=== PATIENT | female | born 1965 | race Caucasian/White ===

== ENCOUNTER 2020-06-22 14:30 | Outpatient (CLI) | payer OTHER, SELFPAY ==
--- NOTE | 2020-06-22 | ECHO_ITS ---
Patient Info Name: Susan Ghosh Age: 54 years : 1965 Gender: Female Ht: 60 in Wt: 170 lbs BSA: 1.84 m2 HR: 92 bpm BP: 157 / 105 mmHg Heart Rhythm: Sinus Rhythm Technical Quality: Good Exam Date: 06/22/2020 2:51 PM Exam Location: [facility] Patient Status: Outpatient Admit Date: 06/22/2020 Staff Ordering Physician: RobertaGhassan MD Customer Services Manager: Nils Partida, ABBY, RT Attending Provider: Willam, Ghassan Pop MD Referring Physician: Willam BELL; Exam Type: CA echo doppler color flow Study Info Indications R01.1 - Cardiac murmur, unspecified Complete two-dimensional, color flow and Doppler transthoracic echocardiogram is performed. Strain analysis performed. Summary 1. Complete two-dimensional, color flow and Doppler transthoracic echocardiogram is performed. 2. Strain analysis performed. 3. Left ventricular chamber dimension is normal. 4. Left ventricular systolic function is normal, estimated at 65-70%. 5. There is mildly increased left ventricular wall thickness. 6. Left ventricular septal wall motion is normal. 7. The left ventricular diastolic function is normal. 8. Global longitudinal strain is normal at -21 %. 9. There is mild mitral valve regurgitation. 10. There is mild tricuspid valve regurgitation. 11. Mild pulmonary hypertension, estimated pulmonary arterial systolic pressure is 38 mmHg. 12. There is mild pulmonic regurgitation. Left Ventricle Left ventricular chamber dimension is normal. Left ventricular systolic function is normal, estimated at 65-70%. There is mildly increased left ventricular wall thickness. Left ventricular septal wall motion is normal. The left ventricular diastolic function is normal. Global longitudinal strain is normal at -21 %. Right Ventricle Right ventricular chamber dimension is normal. Right ventricular systolic function is normal. Left Atria Left atrial chamber dimension is normal. Right Atria Right atrial chamber dimension is normal. Atrial Septum Intact interatrial septum visualized by color flow imaging. Aortic Valve The aortic valve is trileaflet. There is no aortic valve sclerosis. There is no aortic valve stenosis. There is trace aortic valve regurgitation. Pulmonic Valve The pulmonic valve is normal. There is no pulmonic valve stenosis. There is mild pulmonic regurgitation. Mitral Valve The mitral valve has normal leaflets. There is no mitral valve stenosis. There is mild mitral valve regurgitation. Tricuspid Valve Mild pulmonary hypertension, estimated pulmonary arterial systolic pressure is 38 mmHg. The tricuspid valve leaflets are normal. There is no significant tricuspid valve stenosis. There is mild tricuspid valve regurgitation. Pericardium/Pleural The pericardium appears normal. There is no pericardial effusion. Inferior Vena Cava Dilated inferior vena cava with >50% collapse upon inspiration consistent with elevated right atrial pressure, 10 mmHg. Aorta The aortic root size at the sinus of Valsalva is normal. Left Ventricular Outflow Tract Name Value Normal LVOT 2D LVOT Diameter 1.9 cm LVOT Doppler ----
== END 2020-06-22 14:31 | disposition home or self-care (01) ==
LOC: ANHCARD 14:32
PROVIDERS: PCP Family Medicine; Visit Provider Family Medicine
DX: R01.1 Cardiac murmur, unspecified (principal); I27.20 Pulmonary hypertension, unspecified
CPT/HCPCS: 93306

== ENCOUNTER → 2020-09-30 14:05 | Outpatient (CLI) | payer OTHER, SELFPAY ==
--- NOTE | ~2020-09-30 | MM_ITS ---
EXAMINATION: MM screening adarsh BI w marlys HISTORY: Screening mammogram TECHNIQUE: Craniocaudal and mediolateral oblique 3-D tomosynthesis images were obtained and synthetic 2-D images were generated. CAD analysis was submitted and interpreted. COMPARISON: 08/26/2019 bilateral digital screening mammogram 08/02/2018 bilateral diagnostic digital mammogram and Limited bilateral breast ultrasound 07/26/2018, 07/24/2017 bilateral digital screening mammogram examinations BREAST PARENCHYMAL COMPOSITION: There are scattered areas of fibroglandular density. FINDINGS: There is no evidence of suspicious mass, calcification, or architectural distortion to sugg est malignancy in either breast. There has been no suspicious interval change. IMPRESSION: 1. No mammographic evidence of malignancy. 2. Recommend routine screening mammography in one year. BI-RADS Category 1: Negative Reviewed, dictated and finalized at location A. MBLY ROOM SUPERVISOR
== END ==
PROVIDERS: PCP Family Medicine; Visit Provider Obstetrics & Gynecology
DX: Z12.31 Encounter for screening mammogram for malignant neoplasm of breast (principal)
CPT/HCPCS: 77063; 77067

== ENCOUNTER → 2021-10-04 14:51 | Outpatient (CLI) | payer OTHER, SELFPAY ==
--- NOTE | ~2021-10-04 | MM_ITS ---
EXAMINATION: MM screening adarsh BI w marlys HISTORY: Screening TECHNIQUE: Craniocaudal and mediolateral oblique 3-D tomosynthesis images were obtained and synthetic 2-D images were generated. CAD analysis was submitted and interpreted. COMPARISON: Comparison to multiple prior studies sequentially, with oldest reviewed study dated 06/20. BREAST PARENCHYMAL COMPOSITION: There are scattered areas of fibroglandular density. FINDINGS: There is no evidence of suspicious mass, calcification, or architectural distortion to sugg est malignancy in either breast. There has been no suspicious interval change. IMPRESSION: 1. No mammographic evidence of malignancy. 2. Recommend routine screening mammography in one year. BI-RADS Category 1: Negative Reviewed, dictated and finalized at location A. NE STEAM FITTER HELPER
== END ==
PROVIDERS: PCP Family Medicine; Visit Provider Obstetrics & Gynecology
DX: Z12.31 Encounter for screening mammogram for malignant neoplasm of breast (principal)
CPT/HCPCS: 77063; 77067

== ENCOUNTER → 2022-10-10 14:44 | Outpatient (CLI) | payer OTHER, SELFPAY ==
--- NOTE | ~2022-10-10 | MM_ITS ---
EXAMINATION: MM screening adarsh BI w marlys HISTORY: Screening mammogram TECHNIQUE: Craniocaudal and mediolateral oblique 3-D tomosynthesis images were obtained and synthetic 2-D images were generated. CAD analysis was submitted and interpreted. COMPARISON: October 04, 2021, September 30, 2020, August 26, 2019 bilateral screening mammogram exami [place] BREAST PARENCHYMAL COMPOSITION: There are scattered areas of fibroglandular density. FINDINGS: There is no evidence of suspicious mass, calcification, or architectural distortion to sugg est malignancy in either breast. There has been no suspicious interval change. IMPRESSION: 1. No mammographic evidence of malignancy. 2. Recommend routine screening mammography in one year. BI-RADS Category 1: Negative Reviewed, dictated and finalized at location A. IDE PRODUCTION INSPECTOR
== END ==
PROVIDERS: PCP Family Medicine; Visit Provider Obstetrics & Gynecology
DX: Z12.31 Encounter for screening mammogram for malignant neoplasm of breast (principal)
CPT/HCPCS: 77063; 77067

== ENCOUNTER 2024-01-18 13:07 | Outpatient (CLI) | payer OTHER, SELFPAY ==
--- NOTE | ~2024-01-18 | DEXA_ITS ---
Bone Density Report Name: FELISHA COX Age: 58 Sex: Female Ethnicity: White Date of : 1965 Indication: postmenopausal; screening for osteoporosis; Referring Provider: NARENDRA, ONUR Lai Study: Bone densitometry was performed. Exam Date: January 18, 2024 Accession number: [id number] Bone Density: Region BMD T-score Z-score Classification AP Spine (L1, L3, L4) 1.044 -0.1 1.2 Normal Femoral Neck (Left) 0.737 -1.0 0.2 Normal Total Hip (Left) 0.916 -0.2 0.6 Normal Femoral Neck (Right) 0.705 -1.3 -0.1 Osteopenia Total Hip (Right) 0.892 -0.4 0.4 Normal Total Hip Mean 0.904 -0.3 0.5 Normal World Health Organization criteria for BMD impression classify patients as: Normal (T-score at or above -1.0), Osteopenia (T-score between -1.0 and -2.5), or Osteoporosis (T-score at or below -2.5). 10-year Fracture Risk(1): Major Osteoporotic Fracture 6.7% Hip Fracture 0.4% Reported Risk Factors: [place] (), Neck BMD=0.705, BMI=34.6 (1) FRAX(R) Version 3.08. Fracture probability calculated for an untreated patient. Fracture probability may be lower if the patient has received treatment. Clinical Information Provided by Patient: Has used the following medications: HRT (i.e. estrogen/hormone therapy), Vitamin D, Calcium Patient maximum height was 60 Menopause Age: 45 No regular weight bearing exercise Drinks caffeinated beverages Onset of menses at age 12 Number of children 0 Missed period for more than 6 months in a row Impression: The patient has low bone mass, based on the Right Femoral Neck T-score. The patient has an estimated ten-year risk of hip fracture of 0.4% and an estimated ten-year risk of major fracture of 6.7%, based on the WHO FRAX algorithm. Discussion: BONE DENSITY IS LOW AT ONE OR MORE SKELETAL SITES. This patient's lowest T-score is low at one or more skeletal sites. It meets the World Health Organization's (WHO) criteria for ?low bone mass? (T-score between -1.0 and -2.5). The patient's 10-year risk of fracture as calculated by FRAX is less than the threshold where pharmacological therapy is recommended by the National Osteoporosis Foundation (NOF). However, all treatment decisions require clinical judgment and consideration of individual patient factors, including patient preferences, comorbidities, previous drug use, risk factors not captured in the FRAX model (e.g., frailty, falls, vitamin D deficiency, increased bone turnover, interval significant decline in bone density) and possible under or overestimation of fracture risk by FRAX. The patient should follow a healthful lifestyle (good nutrition with adequate calcium and vitamin D, and appropriate weight-bearing exercise). Follow-Up: Consider repeating this study in 2 to 3 years to reassess this patient's status, or alma rosa
== END 2024-01-18 13:08 ==
LOC: MICIMG 13:11
PROVIDERS: PCP Nurse Practitioner Family; Visit Provider Physician Assistant
DX: Z13.820 Encounter for screening for osteoporosis (principal); M85.89 Other specified disorders of bone density and structure, multiple sites; Z78.0 Asymptomatic menopausal state; Z12.31 Encounter for screening mammogram for malignant neoplasm of breast
CPT/HCPCS: 77080

== ENCOUNTER 2025-02-19 10:10 | Outpatient (CLI) | payer OTHER, SELFPAY ==
--- NOTE | ~2025-02-19 | MM_ITS ---
EXAMINATION: MM screening adarsh BI w marlys HISTORY: Screening mammogram TECHNIQUE: Craniocaudal and mediolateral oblique 3-D tomosynthesis images were obtained and synthetic 2-D images were generated. CAD analysis was submitted and interpreted. COMPARISON: 10/10/2022, 10/04/2021, 07/30/2021 BREAST PARENCHYMAL COMPOSITION:Not Dense. There are scattered areas of fibroglandular density. FINDINGS: No suspicious mass, calcification, or architectural distortion are identified in either magalie ast to suggest malignancy. There has been no suspicious interval change. IMPRESSION: No mammographic evidence of malignancy. Recommend routine screening mammography in one year. BI-RADS Category 1: Negative Reviewed, dictated and finalized at location .
--- OUTSIDE RECORDS SUMMARY | 2025-02-19 10:20 | XMS_ITS | Referral Summary ---
Author Organization [facility] Address [facility] [place] [address] Care Team Providers Care Interface Developer Name Role Phone Alena Kinsey OD Unavailable [phone] Rehan Silvestre MD Unavailable [phone] Cuca Waggoner NP Primary Care Provider [phone] Allergies No known active allergies Medications nystatin powder Apply topically 2 (two) times a day APPLY TO AFFECTED AREA 2 Active omeprazole (PriLOSEC) 10 mg capsule Take 1 capsule (10 mg total) by mouth daily Active multivitamin tabletIndicatio ns:Vitamin Deficiency Prevention Take 1 tablet by mouth Active calcium carbonate-vitam in D3 (CALTRATE 600 + D) 1500 mg (600 mg elemental) -400 units per tablet Take 2 tablets by mouth daily 180 tablet 3 5 Active atorvastatin (LIPITOR) 10 mg tablet Take 1 tablet (10 mg total) by mouth daily 90 tablet 3 5 Active losartan-hydroC HLOROthiazide (HYZAAR) 50-12.5 mg per tablet Take 1 tablet by mouth daily 90 tablet 3 5 Active Active Problems Problem Noted Date Diagnosed Date Annual physical exam 10/28/2024 Assessment & Plan (10/28/2024 2:00 PM CDT): -Recommended: Healthy diet. Avoiding junk food/fast food. -30 minutes of exercise most days of the week. Increase to 45 minutes for weight loss. Health Maintenance reviewed - labs ordered.. -Influenza vaccine every year Recommend: -There are no preventive care reminders to display for this patient. -F/u in 1 year for Annual PE or sooner if needed Dysphagia 10/28/2024 Tinnitus of both ears 06/17/2024 Assessment & Plan (06/17/2024 2:34 PM CDT): I recommended next step is to get a hearing test. She does not believe that she needs a referral and will look for leak detection engineer in [place]. She will call if she needs any assistance in finding 1 Osteopenia after menopause 11/02/2023 Assessment & Plan (11/02/2023 3:06 PM CDT): She does have low bone density consistent with osteopenia. Protective lifestyle factors for prevention of disease progression reviewed with pt: Recommend that she consumes at least 1200mg calcium and 800 IU of vitamin D either in her diet or a combination supplement. In addition she should limit alcohol and caffeine intake, avoid smoking, and take measures to prevent falls. Also she should make sure to do some sort of weight bearing exercise (lifting weights, hiking, walking, climbing stairs) for 30 minutes per day for at least 3 days a week. She has been following this with PCP and has a repeat DEXA scan ordered by them. Family history of cancer 11/02/2023 Assessment & Plan (11/02/2023 11:04 AM CDT): Family history of ovarian, uterine, colon, and breast cancer. Counseled on [facility] genetic screening. Patient would like to proceed with testing today. Well woman exam with routine gynecological exam 11/02/2023 Assessment & Plan (11/02/2023 11:05 AM CDT): The patient was here for her well woman exam. She is doing fine. We discussed healthy lifestyle choices such as exercise, diet, multivitamins, calcium, Vit D and avoidance of tobacco, vaping and drug use. Yearly mammography was recommended. She plans to follow up again in one year unless her records show need for another Pap smear in 6 months. She plans to get her records sent to me to assess. Pap was done. History of abnormal cervical Pap smear Assessment & Plan (11/02/2023 11:10 AM CDT): Patient has hx of abnormal pap smear. She plans to get her records sent from her previous [facility] so I can see what abnormalities and make a plan of care. She has had 3 colposcopies with 6 month follow ups. Her last pap smear was normal in 04/2023. She is on the schedule for 6 months from now and I will let her know if that is still necessary after reading her records. Patient is comfortable with this plan. Optic neuropathy, bilateral 09/08/2022 Bilateral hearing loss 06/30/2022 Gastroesophageal reflux disease 06/30/2022 Assessment & Plan (01/18/2024 9:46 AM CDT): Stable on current medication. Continue prilosec otc as ordered. May follow up in 6 months Hyperlipidemia 06/30/2022 Assessment & Plan (10/28/2024 2:00 PM CDT): Lipid abnormalities are stable, reviewed previous lipid levels in [facility]. Continue statin therapy. Lipitor (atorvastatin) Order for lipid panel was given today to be obtained. Pt voiced understanding of lab drawn and continuation of current medication regimen. Assessment & Plan (01/18/2024 9:47 AM CDT): Lipid abnormalities are stable, reviewed previous lipid levels in [facility]. Continue statin therapy. Lipitor (atorvastatin) Will recheck lipid panel in 6 months. Pt voiced understanding of lab drawn and continuation of current medication regimen. Hypertension, essential 07/18/2021 Assessment & Plan (10/28/2024 2:02 PM CDT): Stable/ Improved. Blood pressure is adequately controlled on Losartan and hydrochlorothiazide . We will not make any medication changes today. Will have her follow-up in 6 months for continued monitoring and management Assessment & Plan (01/18/2024 9:46 AM CDT): Stable/ Improved. Blood pressure is adequately controlled on Losartan and hydrochlorothiazide . We will not make any medication changes today. Will have her follow-up in 6 months for continued monitoring and management Resolved Problems Problem Noted Date Diagnosed Date Resolved Date Inverted nipple 11/02/2023 01/18/2024 Assessment & Plan (11/02/2023 11:04 AM CDT): Left sided inverted nipple. She states this is a new finding and she just started noticing it a few months ago. She plans her screening mammogram as soon as possible at [facility]. I also put in for a diagnostic mammogram to assess the inverted nipple further. Patient is comfortable with this plan and will reach out with any concern or questions. Hormone replacement therapy 11/02/2023 01/18/2024 Assessment & Plan (11/02/2023 3:05 PM CDT): Has been taking a half tablet of Activella daily. She has been taking HRT for about 9 years. She is comfortable with trying to wean off. Plans to wean off and let me know if it is successful. Instructions on how to do this reviewed. Patient is comfortable with this plan. 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 01/18/2024 Contact dermatitis due to poison [place] 06/30/2022 01/18/2024 Memory impairment 06/30/2022 01/18/2024 Immunizations Immunization Administration Dates Next Due Influenza, Quadrivalent, Spl it, Preservative Free, Intramuscular 07/14/2020 Influenza, Unspecified 06/17/2024(Deferr ed: Patient Refused),08/20/2022(Deferred: Patient Refused) Tdap 05/11/2020 ZOSTER Recombinant 07/14/2020,05/11/2020 Social History Tobacco Use Types Packs/Day Years Used Date Smoking Tobacco: Never Smokeless Tobacco: Never Tobacco Cessation:Counseling Given: Not Answered AUDIT-C Answer Date Recorded Q1: How often do you have a drink containing alc ohol? 2-3 times a week 11/02/2023 Q2: How many drinks containi ng alcohol do you have on a typical day when you are drinking? 1 or 2 11/02/2023 Q3: How often do you have si x or more drinks on one occasion? 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 Not on file Not on file Not on file Last Filed Vital Signs Vital Sign Reading Time Taken Comments Blood Pressure 116/72 10/28/2024 1:34 PM CDT Pulse 79 10/28/2024 1:34 PM CDT Temperature 36.3 C (97.4 F) 10/28/2024 1:34 PM CDT Respiratory Rate 18 10/28/2024 1:34 PM CDT Oxygen Saturation 98% 10/28/2024 1:34 PM CDT Inhaled Oxygen Concentration - - Weight 79.1 kg (174 lb 4.8 oz) 10/28/2024 1:34 P M CDT Height 152.4 cm (5') 10/28/2024 1:34 PM CDT Body Mass Index 34.04 10/28/2024 1:34 PM CDT Plan of Treatment Not on file Procedures Procedure Name Priority Date/Time Associated Diagnosis Comments DIAGNOSTIC MAMMOGRAM BILATERAL W LUDIN Schedule Routine, Read Routine (OP Routine) 11/27/2023 10:17 AM CDT Inverted nipple HIGH RISK HPV DNA DETECTION WITH GENOTYPING Routine 11/02/2023 11:07 AM CDT Encounter for Papanicolaou smear for cervical cancer screening from Last 3 Months or Most Recently Relevant to Health Maintenance Results * Diagnostic Mammogram Bilateral W Ludin (11/27/2023 10:17 AM CDT) Anatomical Region Laterality Modality Breast Bilateral Mammography 11/27/2023 11:2 2 AM CDT Addenda Addendum by Harman Lerma MD on 12/04/2023 8:39 AM CDT Addendum report: Outside films now been made available dated 10/10/2022 and 10/04/2021. Direct comparison confirms no significant new process. Sustained. Recommendation routine screening mammography bilateral in 1 year assessment: BI-RADS 2 Electronically signed by: Harman Lerma MD Impressions 11/27/2023 11:22 AM CDT ACR BI-RADS Category 2 - Benign. EXAM: Ultrasound left focal limited Ultrasound was performed [id number] EXAM DATE AND TIME: 11/27/2023 10:15 AM HISTORY: Patient complaining of nipple retraction left side. No other current clinical history of concern COMPARISON: Outside old films have been requested and when they become available an addendum comparative report report can be issued TISSUE DENSITY: There are scattered fibroglandular densities (25% - 50%) TECHNIQUE: focal limited Ultrasound was performed FINDINGS: Targeted ultrasound the periareolar region on the left revealed normal ductal pattern. No evidence of any dominant mass. No malignancy no imaging reason for retraction ASSESSMENT: Normal IMPRESSION: ACR BI-RADS Category 2 - Benign. RECOMMENDATION: 1: Routine screening mammogram bilateral in 1 Year 2: Volpara density b - 3.5 to 7.5% Thank you for your referral. Electronically signed by: Harman Lerma MD Narrative 11/27/2023 11:22 AM CDT [id number] EXAM: DIAGNOSTIC MAMMOGRAM BILATERAL W LUDIN, US BREAST LEFT LIMITED EXAM: Bilateral Diagnostic Mammogram with additional spot compression left and ludin [id number] EXAM DATE AND TIME: 11/27/2023 10:15 AM HISTORY: Patient complaining of nipple retraction left side. No other current clinical history of concern COMPARISON: Outside old films have been requested and when they become available an addendum comparative report report can be issued TISSUE DENSITY: There are scattered fibroglandular densities (25% - 50%) TECHNIQUE- diagnostic mammogram with additional spot compression and 3-D ludin Additional 3-D spot compression views were obtained on the left FINDINGS: There is slight asymmetry in the right upper outer quadrant compared to the left but this is made up of the glandular texture. On the right side there is no other dominant masses clustered calcification of the changes suggestive of malignancy. Left side demonstrates benign nodes and some scattered benign lobular calcifications. The retronipple area does show increased ductal prominence and there is slight bilateral nipple retraction. There is no other mass identified behind the nipple or other reason for nipple retraction. See ultrasound ASSESSMENT: There is no evidence of malignancy. Procedure Note Harman Lerma MD - 11/27/2023 [id number] EXAM: DIAGNOSTIC MAMMOGRAM BILATERAL W LUDIN, US BREAST LEFT LIMITED EXAM: Bilateral Diagnostic Mammogram with additional spot compression left and ludin [id number] EXAM DATE AND TIME: 11/27/2023 10:15 AM HISTORY: Patient complaining of nipple retraction left side. No other current clinical history of concern COMPARISON: Outside old films have been requested and when they become available an addendum comparative report report can be issued TISSUE DENSITY: There are scattered fibroglandular densities (25% - 50%) TECHNIQUE- diagnostic mammogram with additional spot compression and 3-D ludin Additional 3-D spot compression views were obtained on the left FINDINGS: There is slight asymmetry in the right upper outer quadrant compared to the left but this is made up of the glandular texture. On the right side there is no other dominant masses clustered calcification of the changes suggestive of malignancy. Left side demonstrates benign nodes and some scattered benign lobular calcifications. The retronipple area does show increased ductal prominence and there is slight bilateral nipple retraction. There is no other mass identified behind the nipple or other reason for nipple retraction. See ultrasound ASSESSMENT: There is no evidence of malignancy. IMPRESSION: ACR BI-RADS Category 2 - Benign. EXAM: Ultrasound left focal limited Ultrasound was performed [id number] EXAM DATE AND TIME: 11/27/2023 10:15 AM HISTORY: Patient complaining of nipple retraction left side. No other current clinical history of concern COMPARISON: Outside old films have been requested and when they become available an addendum comparative report report can be issued TISSUE DENSITY: There are scattered fibroglandular densities (25% - 50%) TECHNIQUE: focal limited Ultrasound was performed FINDINGS: Targeted ultrasound the periareolar region on the left revealed normal ductal pattern. No evidence of any dominant mass. No malignancy no imaging reason for retraction ASSESSMENT: Normal IMPRESSION: ACR BI-RADS Category 2 - Benign. RECOMMENDATION: 1: Routine screening mammogram bilateral in 1 Year 2: Volpara density b - 3.5 to 7.5% Thank you for your referral. Electronically signed by: Harman Lerma MD Farzana Pickett NP IMG MAMMO PROCEDURES Ed ited Result - Final * High Risk HPV DNA Detection with Genotyping (Molecular component) (11/02/2023 11:07 AM CDT) HPV HR 16 Not Detected Not Detected HPV HR 18 Not Detected Not Detected [facility] HPV HR Non 16/18 Not Detected Not Detected [facility] Comment: Interpretive Data Nucleic acid amplification for detection of high-risk Human Papilloma virus (HPV) is performed by the Ranjit Gianfranco 4800 HPV test, which specifically detects high-risk HPV-16, 18, 31, 33, 35, 39, 45, 51, 52, 56, 58, 59, 66, and 68 genotypes. This assay has been approved by the [place] Food and Drug Administration for detection of HPV in cervical specimens collected by a physician using an endocervical brush/spatula or cervical broom and placed in the ThinPrep Pap Test PreservCyt collection containers. The performance characteristics of this test have been verified by the [facility]. Correlate with separately reported cytology results, as applicable. Interpretive data last revised 23 Endocervical 11/02/2023 11:0 7 AM CDT 11/02/2023 4:59 PM CDT Narrative [facility] - 11/06/2023 6:44 PM CDT Clinical history and diagnosis->screening Number of vials->1 Testing type->Screening Last menstrual period (date if known)->unknown Farzana Pickett NP LAB BODY FLUIDS AND STO OLS ORDERABLES Final Result [facility] [address] [place] [address] from Last 3 Months or Most Recently Relevant to Health Maintenance Insurance [employer] Member Subscriber Plan / Payer (Ef fective 2013-Present) Name:Susan Ghosh Relation to Subscriber:Self Name:Susan Ghosh Payer ID:[id number] (NAIC) Type:[facility] HMO/PPO Address: [place] [phone] [employer] Member Subscriber Plan / Payer (Ef fective 2013-Present) Name:Susan Ghosh Relation to Subscriber:Self Name:Susan Ghosh Payer ID:[id number] (NAIC) Group ID:Not on file Type:[facility] HMO/PPO Address: [place] [phone] [employer] Member Subscriber Plan / Payer (Ef fective 2013-Present) Name:Yosvanymary ellenSusan blanco Enrike Relation to Subscriber:Self Name:Susan Ghosh Payer ID:[id number] (NAIC) Type:[facility] HMO/PPO Address: [place] [phone] Care Teams Interface Developer Relationship Specialty Start Date End Date Cuca Waggoner NP [address] [place] [address] PCP - General Family Medicine 01/29/25 Alena Kinsey OD [address] [place] [address] Referring Physician Optometry 06/30/22 Rehan Silvestre MD [address] [facility] [address] [facility] [address] [place], [place] [id number] Referring Physician Obstetrics and Gynecology 10/28/24
--- OUTSIDE RECORDS SUMMARY | 2025-02-19 10:20 | XMS_ITS | Data Portability ---
Author Organization [facility] Address [address] [place] [address] Care Team Providers Care Retail Helper Name Role Phone MARYLOU HAMMER Primary Care Provider [phone] Assessment Encounter Date Assessment Date Assessment LastModified by Organization Details LastModified Time 08/26/2021 08/26/2021 colpo done with bio[sy and ecc, will contact with results. likely repap 6 mos. [email or web address] Not available 08/29/2021 09:29:22 02/28/2022 02/28/2022 repap done today will notify with results likely repap in 6 mos with WWE Not available 02/28/2022 16:10:46 07/21/2022 07/21/2022 healthy female exam/menopaus e patient declines std testing pap done, colpo if still abnormal or HPV pos mammogram due in Sep, has scheduled colonoscopy due 2026 dexa due next year HRT refilled, doing well, aware of risks nystop for intertrigo Encouraged weight bearing exercise and 1500mg daily of Calcium with Vitamin D FU 1 year or prn [email or web address] Not available 07/21/2022 13:55:27 09/15/2022 09/15/2022 will call with pathology did discuss LEEP if persistent low grade [email or web address] Not available 09/18/2022 11:22:06 04/24/2023 04/24/2023 repap done today will notify with results WWE with repap in 6 mos [email or web address] Not available 04/24/2023 15:43:07 Plan of Treatment Reminders Order Date Submit Date Provider Last Modified By Organization Details Last Modified Time Details Appointments None recorded. Lab None recorded. Referral None recorded. Procedures None recorded. Surgeries None recorded. Imaging None recorded. Medication Orders nystatin 100,000 unit/gram topical powder 2021 [id number], [address], [place], [id number], 12:09:23 estradiol- norethindr one acet 0.5 mg-0.1 mg tablet 2021 [id number], [address], [place], [id number], 12:10:47 Patient TargetsNo targets recorded. Patient InstructionsNo instructions recorded. Reason for Referral None Reported. Results Created Date Observation Date Name Description Value Unit Range Abnormal Flag Note LastModifiedBy Organization Detail LastModifiedTime 08/26/1908/26/2021 SURGI LEIDY PATHO LOGY surgical pathology SEE RESULT S BELOW CASE REPOR T: Surgi leidy Patho logy Repor t Case: [id number] Autho álvaro blackburn Provi robby: Lianna Zaman MD Colle cted: 08/26 1531 Order ing Locat ion: [place] Patho logy Recei jakub: 08/27 0340 Patho logis t: Lyric Beach MD Speci mens: A) - Endoc ervix , ecc B) - Cervi x, cervi leidy biops y FINAL DIAGN OSIS: A. Endoc ervic al curet tage: - Scant fragm ents of fibri n. - No defin itive endoc ervic al tissu e ident ified . B. Cervi x, biops y: - Detac hed fragm ents of benig n squam ous mucos a. - Separ ate fragm ents of benig n endoc ervic al tissu e. Elect amry whatley d by Lyric Beach MD on 2021 at 12:24 PM ----- ----- ----- ----- ----- ----- ----- ----- ----- ----- ----- ----- ----- ----- ----- ----- ----- ---- COMME NT: The prece ding Pap smear is appre ciate d ([id number]). CLINI LEIDY INFOR MATIO N: NOT PROVI DED MICRO SCOPI C DESCR IPTIO N: A micro scopi c exami natio n was perfo rmed. GROSS DESCR IPTIO N: A. Endoc ervix . The speci men is label ed with the patie nt's name, rikki fitzgerald cs and ECC . Recei jakub in forma abrahan is a less than 0.1 cm aggre gate of mucus and minut e white -lombardi tissu e. The entir e speci men is filte red throu gh a filte r bag and is submi tted in one casse tte; howev er, defin itive tissu e may not survi ve proce ssing . Gross ed by Ramin mason B. Cervi x. The speci men is label ed with the patie nt's name, rikki fitzgerald cs and cerv ical biops y. Recei jakub in forma abrahan is a 0.5 x 0.5 x 0.1 cm aggre gate of mucus and minut e white -lombardi tissu e. The entir e speci men is submi tted in one casse tte. Gross ed by Ramin mason Not Available [facility] (Lab) [address], [place], [address], 08/29/2021 13:27:10 02/29/20 22 02/28/2022 IMAGE GUIDE D PAP AND HPV REGAR DLESS image guided Pap, HPV regardless of Pap result SEE RESULT S BELOW abnormal CASE REPOR T: Cytol ogy Gynec ologi leidy Repor t Case: [id number] Autho álvaro blackburn Provi robby: Lianna Zaman MD Colle cted: 02/28 1622 Order ing Locat ion: [place] Patho logy Recei jakub: 03/01 0241 First Scree n: Ivonne strong ak, Pasquale ay, CT Rescr een: Brionna Stewart ret, CT Speci men: Mehrdad young Pap - Image d, Cervi x STATE MENT OF ADEQU ACY: Satis facto ry for evalu ation Trans forma tion zone compo nent prese nt FINAL DIAGN OSIS: Negat chary for Intra epith elial Lesio n or Angus ramires (NIL) . Elect mary miriamshereen phylicia d by Brionna Stewart ret, CT on 2021 at 5:35 AM ----- ----- ----- ----- ----- ----- ----- ----- ----- ----- ----- ----- ----- ----- ----- ----- ----- ---- HPV RESUL TS: HPV mRNA E6/E7 : Posit chary - HPV mRNA Detec boris HPV GENOT YPE 16 (CONNIE) : Not Detec boris HPV GENOT YPE 18/45 (CONNIE) : Not Detec boris NOTE: This high risk HPV mRNA assay detec ts fourt een high- risk HPV types (16, 18, 31, 33, 35, 39, 45, 51, 52, 56, 58, 59, 66, 68) witho ut diffe renti ation . This assay can diffe renti ate HPV 16 from HPV 18/45 , but does not diffe renti ate betwe en HPV 18 and HPV 45. A negat chary HPV 16, 18/45 genot ype assay resul t does not exclu de the possi bilit y of cytol ogic abnor malit ies or of futur e or under lying BEATRIS 1, BEATRIS 3 or cance r. COMME NT: Note: This speci men was revie wed by a Cytot echno logis t and/o r Patho logis t (as indic ated in this repor t) after evalu ation using the Thinp rep Imagi ng Syste m. CLINI LEIDY INFOR MATIO N: Menst rual Statu s: LMP (if appli cable ): Clini leidy Histo ry/Pr eviou s Pap: Type of Neopl lida (if appli cable ): Signi fican t Clini leidy Findi ngs: Other Histo ry: Hormo asmita (if appli cable ): PAP EDUCA TAMI L NOTE: The Pap Test is a scree hannah test with an inher ent false negat chary rate. Liqui d-bas ed sampl ing may decre ase, but will not elimi christopher, false negat chary resul ts. A negat chary resul t does not precl ude the prese nce and/o r devel opmen t of disea se, since the prese nce of abnor mal cells in the sampl e depen ds on the locat ion of the lesio n and sampl ing techn ique. Maria Del Carmen nued regul ar scree hannah is the best metho d of cance r preve ntion . If repor boris cytol ogic findi ng do not corre late with physi leidy and/o r histo rical findi ngs, furth er inves tigat ion is recom william d, as clini florence willis nted. Not Available [facility] [address] [place], [address], 03/05/2022 06:37:29 07/21/20 22 07/21/2022 IMAGE GUIDE D PAP AND HPV REGAR DLESS image guided Pap, HPV regardless of Pap result SEE RESULT S BELOW abnormal CASE REPOR T: Cytol ogy Gynec ologi leidy Repor t Case: [id number] Autho rigiselle g Provi robby: Lianna Zaman MD Colle cted: 07/21 1310 Order ing Locat ion: [place] Patho logy Recei jakub: 07/22 0022 First Scree n: Rocco deBrionna ret, CT Speci men: Scree hannah Pap - Image d, Cervi x STATE MENT OF ADEQU ACY: Satis facto ry for evalu ation Trans forma tion zone compo nent prese nt FINAL DIAGN OSIS: Negat chary for Intra epith elial Lesio n or Mkdeneen ramires (NIL) . Elect mary whatley d by Brionna Stewart ret, CT on 2021 at 3:53 PM ----- ----- ----- ----- ----- ----- ----- ----- ----- ----- ----- ----- ----- ----- ----- ----- ----- ---- HPV RESUL TS: HPV mRNA E6/E7 : Posit chary - HPV mRNA Detec boris HPV GENOT YPE 16 (CONNIE) : Not Detec boris HPV GENOT YPE 18/45 (CONNIE) : Not Detec boris NOTE: This high risk HPV mRNA assay detec ts fourt een high- risk HPV types (16, 18, 31, 33, 35, 39, 45, 51, 52, 56, 58, 59, 66, 68) witho ut diffe renti ation . This assay can diffe renti ate HPV 16 from HPV 18/45 , but does not diffe renti ate betwe en HPV 18 and HPV 45. A negat chary HPV 16, 18/45 genot ype assay resul t does not exclu de the possi bilit y of cytol ogic abnor malit ies or of futur e or under lying BEATRIS 1, BEATRIS 3 or cance r. COMME NT: Note: This speci men was revie wed by a Cytot echno logis t and/o r Patho logis t (as indic ated in this repor t) after evalu ation using the Thinp rep Imagi ng Syste m. CLINI LEIDY INFOR MATIO N: Menst rual Statu s: LMP (if appli cable ): Clini leidy Histo ry/Pr eviou s Pap: Type of Neopl lida (if appli cable ): Signi fican t Clini leidy Findi ngs: Other Histo ry: Hormo asmita (if appli cable ): PAP EDUCA TAMI L NOTE: The Pap Test is a scree hannah test with an inher ent false negat chary rate. Liqui d-bas ed sampl ing may decre ase, but will not elimi christopher, false negat chary resul ts. A negat chary resul t does not precl ude the prese nce and/o r devel opmen t of disea se, since the prese nce of abnor mal cells in the sampl e depen ds on the locat ion of the lesio n and sampl ing techn ique. Maria Del Carmen nued regul ar scree hannah is the best metho d of cance r preve ntion . If repor boris cytol ogic findi ng do not corre late with physi leidy and/o r histo rical findi ngs, furth er inves tigat ion is recom william d, as clini florence willis nted. Not Available [facility] (Lab) [address], [place], [address], 07/26/2022 18:08:05 09/15/19 23 09/15/2022 SURGI LEIDY PATHO LOGY surgical pathology SEE RESULT S BELOW CASE REPOR T: Surgi leidy Patho logy Repor t Case: [id number] Autho álvaro g Provi robby: Lianna Zaman MD Colle cted: 09/15 1205 Order ing Locat ion: [place] Patho logy Recei jakub: 09/16 0129 Patho logis t: Nirmal Chun MD Speci mens: A) - Endoc ervix , ECC B) - Cervi x, Cervi leidy biops y FINAL DIAGN OSIS: A. Endoc ervix , curet tage: -Rare fragm ents of atrop hic endoc ervic al gland s; insuf ficie nt for compl ete histo logic evalu ation . B. Cervi x, biops y: -Rare fragm ents of atrop hic endoc ervic al gland s; insuf ficie nt for compl ete histo logic evalu ation . Elect mary panda phylicia d by Nirmal Chun MD on 2022 at 10:17 AM ----- ----- ----- ----- ----- ----- ----- ----- ----- ----- ----- ----- ----- ----- ----- ----- ----- ---- COMME NT: The previ ous Pap smear (CDG2 [id number]) and HPV mRNA test resul ts are noted . CLINI LEIDY INFOR MATIO N: b97.7 MICRO SCOPI C DESCR IPTIO N: A micro scopi c exami natio n was perfo rmed. GROSS DESCR IPTIO N: A. Endoc ervix . The speci men is label ed with the patie nt's name, demog raphi cs and ECC . Recei jakub in forma abrahan is a 1.0 x 1.0 x 0.2 cm aggre gate of mucus and minut e white -lombardi tissu e. The entir e speci men is submi tted in one casse tte. Gross ed by Ramin mason B. Cervi x. The speci men is label ed with the patie nt's name, demog raphi cs and cerv ical biops y. Recei jakub in forma abrahan is a 0.5 x 0.5 x 0.2 cm aggre gate of mucus and minut e white -lombardi tissu e. The entir e speci men is submi tted in one casse tte. Gross ed by Ramin mason Not Available [facility] (Lab) [address], [place], [address], 09/18/2022 11:20:48 04/24/20 23 04/24/2023 IMAGE GUIDE D PAP AND HPV REGAR DLESS image guided Pap, HPV regardless of Pap result SEE RESULT S BELOW CASE REPOR T: Cytol ogy Gynec ologi leidy Repor t Case: [id number] Autho álvaro blackburn Provi robby: Lianna Zaman MD Colle cted: 04/24 1700 Order ing Locat ion: [place] Patho logy Recei jakub: 04/25 0623 First Scree n: Brionna Stewart ret, CT Rescr een: Ivonne restrepo, Pasquale jeffers, CT Speci men: Scree hannah Pap - Image d, Cervi x STATE MENT OF ADEQU ACY: Satis facto ry for evalu ation Trans forma tion zone compo nent prese nt FINAL DIAGN OSIS: Negat chary for Intra epith elial Lesio n or Angus ramires (NIL) . Elect mary panda phylicia d by Ivonne restrepo, Pasquale jeffers, CT on 023 at 3:36 PM ----- ----- ----- ----- ----- ----- ----- ----- ----- ----- ----- ----- ----- ----- ----- ----- ----- ---- HPV RESUL TS: HPV mRNA E6/E7 : No HPV mRNA Detec boris NOTE: This high risk HPV mRNA assay detec ts fourt een high- risk HPV types (16, 18, 31, 33, 35, 39, 45, 51, 52, 56, 58, 59, 66, 68) witho ut diffe renti ation . COMME NT: This speci men was revie wed by a Cytot echno logis t and/o r Patho logis t (as indic ated in this repor t) after evalu ation using the Thinp rep Imagi ng Syste m. CLINI LEIDY INFOR MATIO N: Menst rual Statu s: LMP (if appli cable ): Clini leidy Histo ry/Pr eviou s Pap: Type of Neopl lida (if appli cable ): Signi fican t Clini leidy Findi ngs: Other Histo ry: Hormo asmita (if appli cable ): PAP EDUCA TAMI L NOTE: The Pap Test is a scree hannah test with an inher ent false negat chary rate. Liqui d-bas ed sampl ing may decre ase, but will not elimi christopher, false negat chary resul ts. A negat chary resul t does not precl ude the prese nce and/o r devel opmen t of disea se, since the prese nce of abnor mal cells in the sampl e depen ds on the locat ion of the lesio n and sampl ing techn ique. Maria Del Carmen nued regul ar scree hannah is the best metho d of cance r preve ntion . If repor boris cytol ogic findi ng do not corre late with physi leidy and/o r histo rical findi ngs, furth er inves tigat ion is recom william d, as clini florence warra nted. Not Available [facility] (Lab) [address], [place], [address], 04/26/2023 16:39:02 10/04/19 22 10/04/2021 MAMMO , scree hannah, digit al, bilat eral No observ ation record ed. [facility] [address], [place], [address], 10/06/2021 14:40:14 10/10/19 23 10/10/2022 MAMMO , scree hannah, bilat eral No observ ation record ed. [email or web address] [address], [place], [address], 01/01/2023 11:39:36 10/10/19 23 10/10/2022 MAMMO , scree hannah, bilat eral No observ ation record ed. [facility] [address], [place], [address], 01/11/2023 17:34:47 Result Notes None recorded. Problems Name Problem SNOMED Code Status Onset Date Resolution Date Notes Provider Name and Address Organization Details Recorded Time Atypical squamous cells of undetermined significance on cervical Papanicolaou smear 253213505 Active 2020 Lianna Richmond MD [address], [place], [address], [facility] 15:11:35 Human papilloma virus infection 662379280 Active 2020 Lianna Richmond MD [address], [place], [address], [facility] 15:11:42 Hypertensive disorder 41131151 Active 2020 Lianna Richmond MD [address], [place], [address], [facility] 15:11:47 Hormone replacement therapy Active 2020 Lianna Richmond MD [address], [place], [address], [facility] 15:23:06 Postmenopaus al osteopenia 716349629 Active 2020 Lianna Richmond MD [address], [place], [address], [facility] 15:23:07 Problem Notes None recorded. Procedures Surgical History Date Name Laterality Status Provider Name and Address Organization Details Recorded Time 09/15/19 23 Colposcopy completed Lianna Richmond MD [address], [place], [address], [facility] 09/18/2022 11:21:40 09/15/19 23 Colposcopy completed [facility] 04/24/2023 15:16:02 02/29/20 22 Date of Last [facility] Smear [facility] 04/24/2023 15:19:42 10/04/19 22 Date of Last Mammogram completed [facility] 07/21/2022 09:30:21 08/26/19 22 Colposcopy completed Lianna Richmond MD [address], [place], [address], [facility] 08/29/2021 09:28:55 08/11/20 20 colposcopy completed [facility] 07/19/2021 15:03:31 08/20/19 19 colonoscopy completed [facility] 07/19/2021 15:01:25 08/20/19 17 Date of Last Colonoscopy completed [facility] 07/21/2022 11:47:25 Imaging Results None recorded. Procedure Notes None recorded. Medical Equipment None Reported. Allergies No known drug allergies Medications Name Sig Start Date Stop Date Status Note LastModified by Organization Details LastModified Time losartan 50 mg tablet TAKE 1 TABLET BY MOUTH EVERY DAY 07/19 completed Not Available Not Available Not Available atorvastati n 10 mg tablet TAKE 1 TABLET BY MOUTH ONCE DAILY active Not Available Not Available No t Available valacyclovi r 1 gram tablet TAKE 2 TABLETS BY MOUTH AT FIRST SIGN OF OUTBREAK AND TAKE 2 TABLETS BY MOUTH 12 HOURS LATER active Not Available Not Available No t Available prednisolon e acetate 1 % eye drops,suspe nsion INSTILL 1 DROP IN BOTH EYES THREE TIMES DAILY X 3 DAYS THEN TWICE DAILY X 7 DAYS 07/19 completed Not Available Not Available Not Available nystatin 100,000 unit/gram topical powder APPLY TO THE AFFECTED AREA(S) BY TOPICAL ROUTE 2 TIMES PER DAY active Not Available Not Available No t Available losartan 50 mg-hydrochl orothiazide 12.5 mg tablet TAKE 1 TABLET BY MOUTH ONCE DAILY active Not Available Not Available No t Available esomeprazol e magnesium 20 mg capsule,del ayed release TAKE 1 CAPSULE BY MOUTH ONCE DAILY active Not Available Not Available No t Available calcium 600 mg (as carbonate)- vitamin D3 10 mcg (400 unit) tablet TAKE 1 TABLET BY MOUTH TWICE DAILY WITH MEALS active Not Available Not Available No t Available estradiol-n orethindron e acet 0.5 mg-0.1 mg tablet TAKE 1/2 TABLET DAILY BY MOUTH active Not Available Not Available No t Available Vitals Date Recorded Body height Body mass index (BMI) Body weight Systolic And Diastolic Systolic And Diastolic Provider Name and Address Organization Details Last Updated DateTime 08/26/2021 152.4 cm 34.2 kg/m2 16179.66 g 149/84 mm[Hg] 142/78 mm[Hg] [facility] 14:26:49 Date Recorded Body height Body mass index (BMI) Body weight Systolic And Diastolic Provider Name and Address Organization Details Last Updated DateTime 09/15/2022 152.4 cm 34.2 kg/m2 63129.66 g 138/83 mm[Hg] [facility] 09/15/2022 11:07:14 Date Recorded Body height Body mass index (BMI) Body weight Systolic And Diastolic Provider Name and Address Organization Details Last Updated DateTime 02/28/2022 152.4 cm 33.4 kg/m2 94693.3 g 124/81 mm[Hg] [facility] 02/28/2022 15:33:20 Date Recorded Body height Body mass index (BMI) Body weight Systolic And Diastolic Provider Name and Address Organization Details Last Updated DateTime 04/24/2023 152.4 cm 34 kg/m2 21177.07 g 128/80 mm[Hg] [facility] 04/24/2023 15:25:44 Date Recorded Body height Body mass index (BMI) Body weight Systolic And Diastolic Provider Name and Address Organization Details Last Updated DateTime 07/21/2022 152.4 cm 33.4 kg/m2 27891.3 g 134/83 mm[Hg] [facility] 07/21/2022 11:47:00 Social History Question Answer Notes LastModified by [employer] Details LastModified Time Tobacco Smoking Status Never Smoker [facility] 07/19/2021 09:39:28 Have You Ever Been Counseled For Unhealthy Alcohol Use? No Information not available 07/19/2021 Has Tobacco Cessation Counseling Been Provided? No Information not available 07/19/2021 Sex: Unknown Functional Status Question Answer Note LastModified by [employer] Details LastModified Time Do you use any illicit or recreational drugs? No Information not available 07/19/2021 Do you or have you ever used any other forms of tobacco or nicotine? No Information not available 07/19/2021 What is your level of alcohol consumption? Occasional Information not available 07/19/2021 Mental Status None recorded. Family History Relationship Description Onset Age of this Age Resolved Age Notes LastModified by Organization Details LastModified Time Paternal Grandfather Carcinoma in situ of colon [email or web address] Not available 2020 15:01:50 Maternal Grandfather Carcinoma in situ of colon [email or web address] Not available 2020 15:01:50 Paternal Aunt Carcinoma in situ of breast [email or web address] Not available 2020 15:02:03 Paternal Aunt Carcinoma in situ of uterus smcaley Not available 2020 15:02:32 Paternal Uncle Carcinoma in situ of prostate smcaley Not available 2020 15:02:46 Medical History Condition Response Allergies (Food, seasonal, environmental ) N Other N Breast Cancer N Drug/Latex Allergies/Reactions N Blood Transfusion N Dermatologic Disorders N Lung Disease N Defects or Inherited Disease N Breast Problem N Gestational Diabetes N Hematologic disorders N Anesthesia Complications N History of STI N Deep Vein Thrombosis N Polycystic ovary syndrome N Anxiety Disorder N Autoimmune disease N Arthritis N Infertility N Polyps N Acid Reflux (GERD) N History of abnormal pap N Cancer N Stroke N Varicosities N Neurologic/Epilepsy N Endometriosis N High Cholesterol N Headaches N Fibromyalgia N Kidney Disease N Heart Problems N Kidney or Bladder Problems N Thyroid Problems N GI Problems N Eating Disorder N Anemia N Art (IVF or FET) N Psychiatric Illness N Ovarian Cancer N Diabetes N Pulmonary (TB, Asthma) N Hepatitis/Liver Disease N No Past Medical History N Eczema N Urinary Tract Infection N Abuse/Domestic Violence N Asthma N Trauma/Violence N Depression/ depression N Heart Disease N Pre-Eclampsia N Hypertension Y Osteoporosis N Thrombophilias N Gynecological History Statement/Question Response Abnormal Pap Y Date of Last Mammogram 10/04/2021 Date of Last Colonoscopy 08/20/2016 Colposcopy 09/15/2022 Date of Last Pap Smear 02/28/2022 Current Control Method None 12 Obstetrics History GPAL:G 0 P 0 0 0 0 Past Encounters Encounter ID Performer Location Encounter Start Date Encounter Closed Date Diagnosis/Indication Diagnosis SNOMED-CT Code Diagnosis ICD10 Code Diagnosis Note [id number] Lianna Richmond MD [place] [address] [address] 07/19/2021 14:44:42 07/19/2021 16:17:03 Gynecologic examination 57714813 Z01.419 Hormone re placement therapy 653484531 Z79.890 Postmenopa usal osteopenia 123430377 M85.80 [id number] Lianna Richmond MD [place] [address],[place] [address] 08/26/2021 14:18:24 08/29/2021 11:18:17 Atypical squamous cells of undetermined significance on cervical Papanicolaou smear 739015539 R87.610 Human sonia lloma virus infection 398989864 B97.7 [id number] Lianna Richmond MD [place] [address],[place] [address] 07/21/2022 11:37:46 07/21/2022 14:02:55 Gynecologic examination 11953192 Z01.419 Z11.51 Candidal intertrigo 2661 72936 B37.2 Atypical s quamous cells of undetermined significance on cervical Papanicolaou smear 154610513 R87.610 Hormone re placement therapy 425345334 Z79.890 Human sonia lloma virus infection 167224399 B97.7 Postmenopa usal osteopenia 561047674 M85.80 [id number] Lianna Richmond MD [place] [address],[place] [address] 02/28/2022 15:22:28 02/28/2022 16:24:26 Atypical squamous cells of undetermined significance on cervical Papanicolaou smear 877622708 R87.610 Human sonia lloma virus infection 694280583 B97.7 [id number] Lianna Richmond MD [place] [address],[place] [address] 09/15/2022 10:50:38 09/18/2022 15:11:10 Human papilloma virus infection 706944565 B97.7 [id number] Lianna Richmond MD [place] [address],[place] [address] 04/24/2023 15:10:04 04/24/2023 15:51:03 Human papilloma virus infection 750052777 B97.7 Atypical s quamous cells of undetermined significance on cervical Papanicolaou smear 021398817 R87.610 Health Concerns Section Related Observation LastModified by Organization Detai ls LastModified Time None Recorded Concern Status LastModified by Organization Details LastModified Time None Recorded Advance Directives Directive None Recorded Payers Insurance Date Sequence Insurance Name Policy Number Policy Maynard Covered Member ID Maynard Member ID Guarantor Name 07/07/2021 1 [facility] Susan C Blechle [id number] Susan Jessie Blechle 07/18/2021 1 [facility] [id number] Susan Blechle [id number] Susan Duffyine Blechle 08/12/2021 1 [facility] Susan C Blechle [id number] Susan Jessie Blechle 10/23/2023 1 [facility] [id number] Susan C Blechle [id number] Susan Jessie Blechle 08/23/2021 1 [facility] [id number] Susan Blechle [id number] Susan Jessie Blechle Notes Date Note Type Note Provider Name and Address Organization Details Recorded Time 08/26/2021 text/html colpo for ASCUS pos HPV last year and just again with [employer] in Nov. Lianna Richmond MD [address], [place], [address], [facility] 08/29/2021 09:29:44 02/28/2022 text/html Pt is a 56yo here for a repeat pap smear. Last Jun ASCUS pos HPV. Prior paps: above complaints:none contraception: menopause Lianna Richmond MD [address], [place], [address], [facility] 02/28/2022 16:12:52 07/21/2022 text/html Nydia is a 56yo G0 who presents for an annual exam. On low dose HRT- 1/2 tab daily, doing well on it, rare hot flashes. minimal vaginal dryness. wants to continue it. last pap- 02/2022 NILM pos HPV, 06/2021 ASCUS pos HPV. colpo last 08/2021 mammo-09/2021 colonoscopy-2017 , 10 years dexa-2020 osteopenia menopause-y sexually active-n seatbelts-y exercise-y depression-denie s domestic violence-denies tobacco-n concerns- Lianna Richmond MD [address], [place], [address], [facility] 07/21/2022 13:56:52 09/15/2022 text/html Here for colpo. 08/10 pap NILM pos HPV. HPV pos since 2020. Lianna Richmond MD [address], [place], [address], [facility] 09/18/2022 11:22:24 04/24/2023 text/html Pt is a 57yo G0 here for a repeat pap smear. 2020 ASCUS pos HPV, 2021 NILM pos HPV x2. colpo 08/2022 insufficient, colpo 2021 NILM. Prior paps:see above complaints:none contraception:me nopause Lianna Richmond MD [address], [place], [address], [facility] 04/24/2023 15:44:22 OBGyn Episode No OBEpisode recorded.
--- OUTSIDE RECORDS SUMMARY | 2025-02-19 10:20 | XMS_ITS | Clinical Summary ---
Author Organization [facility] [employer] Address [address] [place] [address] Care Team Providers Care Retail Chain Store Area Supervisor Name Role Phone Ghassan Granados MD Primary Care Provider [phone] Source Comments [facility] [employer],non-owned Affiliates and Associated Physician Practices is amultiple site organization consisting of ambulatory clinics and hospital sitesin [place], [place], [place] and [place]. This disclosure is being madepursuant to the Care Everywhere program and may not contain all information available regarding this patient. Last updated 18.[facility] [employer] Allergies No known active allergies Medications * Be aware that medications may not be up to date on this document. Alwaysverify current medications with the patient. 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 Gender Identity Not on file Sexual Orientation Not on file Last Filed Vital Signs Vital Sign Reading Time Taken Comments Blood Pressure 165/96 02/13/2019 2:55 PM CDT Pulse 85 02/13/2019 2:55 PM CDT Temperature - - Respiratory Rate - - Oxygen Saturation 98% 02/13/2019 2:55 PM CDT Inhaled Oxygen Concentration - - Weight 77.1 kg (170 lb) 02/13/2019 2:55 PM CDT Height 152.4 cm (5') 02/13/2019 2:55 PM CDT Body Mass Index 33.2 02/13/2019 2:55 PM CDT Plan of Treatment Health Maintenance Due Date Last Done Comments COLOGUARD (AGES 45-75) - COL ON CA SCREENING 1965 COLON MONITORING 1965 COLONOSCOPY - COLON CA SCREENING 1965 CT COLONOGRAPHY - COLON CA SCREENING 1965 Colorectal Cancer Screening 1965 FIT - COLON CA SCREENING 1965 FLEX SIG - COLON CA SCREENING 1965 LIPID TESTING 1965 MAMMOGRAM 1965 HIV SCREENING 1980 HEPATITIS C SCREENING 07/27/1983 DTAP/TDAP/TD VACCINES (1 - Tdap) 1984 HEPATITIS B VACCINE (1 of 3 - 19+ 3-dose series) 1984 PNEUMOCOCCAL VACCINE 50+ (1 of 1 - PCV) 2015 ZOSTER VACCINE (1 of 2) 2015 SCREENING FOR DIABETES 02/13/2019 COVID-19 VACCINE ( - 2023-2 5 season) 2024 DEPRESSION SCREENING 08/20/2024 INFLUENZA VACCINE (Season Ended) 2025 HIB VACCINE Aged Out No longer eligi ble based on patient's age to complete this topic HPV VACCINE Aged Out No longer eligi ble based on patient's age to complete this topic MENINGOCOCCAL (Group B) VACC INE SHARED DECISION-MAKING Aged Out No longer eligibl e based on patient's age to complete this topic MENINGOCOCCAL GROUPS A/C/Y/W VACCINE Aged Out No longer eligible b ased on patient's age to complete this topic [place] [address] [place] [address] Care Teams Retail Chain Store Area Supervisor Relationship Specialty Start Date End Date Ghassan Granados MD [facility] [place] [address] PCP - General 02/13/19
--- OUTSIDE RECORDS SUMMARY | 2025-02-19 10:20 | XMS_ITS | Clinical Summary ---
Author Organization [facility] Address [place] [address] Care Team Providers Care Hourly Sales Staff Name Role Phone Alena Kinsey OD Unavailable [phone] Rehan Silvestre MD Unavailable [phone] Cuca Waggoner NP Primary Care Provider [phone] Allergies No known active allergies Medications nystatin [...] needs a referral and will look for oncology rep in [place]. 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 Continue statin therapy. Lipitor (atorvastatin) Order for lipid panel was given today to be obtained. Pt voiced understanding of lab drawn and continuation of current medication regimen. Assessment & Plan (01/18/2024 9:47 AM CDT): Lipid abnormalities are stable, reviewed previous lipid levels in [facility]. Continue statin therapy. Lipitor (atorvastatin) Will recheck [...] screening mammogram as soon as possible at [facility]. I also put in for a diagnostic [...] Patient Refused) Tdap 05/11/2020 ZOSTER Recombinant 07/14/2020,05/11/2020 Medical History Medical History Date Comments HPV in female Hypertension 2021 Hyperlipidemia Family History Medical History Relation Name Comments Hearing loss Father Raman Hypertension Father Raman Breast cancer Father's Sister 1 Rabia Cancer Father's Sister 1 Rabia Cancer Father's Sister 2 cynthia Ovarian cancer Father's Sister 2 cynthia Uterine cancer Father's Sister 2 cynthia Lung cancer Maternal Grandfather Cancer Paternal Grandfather Jaden Colon cancer Paternal Grandfather Jaden Heart attack Paternal Grandmother Cynthia Hypertension Sister 1 Diabetes Sister 3 Palma Miscarriages / Stillbirths Sister 3 Palma Hypertension Sister 4 Kenyatta Hypertension Sister 5 Lauryn Blood Clot Neg Hx Relation Name Status Comments Father Raman Alive Father's Sister 1 Rabia Alive Father's Sister 2 cynthia Maternal Grandfather Mother Alive Paternal Grandfather Jaden Paternal Grandmother Cynthia Alive Sister 1 Sister 2 Alive Sister 3 Palma Alive Sister 4 Kenyatta Alive Sister 5 Lauryn Alive Social History Tobacco Use Types Packs/Day Years [...] on file Legal Sex Female 2:15 PM COB SAWYER Gender Identity Female 07/24/2022 7:15 PM COB SAWYER Sexual Orientation Not on file 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 Not on file Not on file Not on file Obstetrics History Para Term AB IAB SAB Ectopic Multiple Livin g Live Births 0 0 0 0 0 0 0 0 0 0 0 Last Filed Vital Signs Vital Sign Reading [...] 10/28/2024 1:34 PM CDT Plan of Treatment Health Maintenance Due Date Last Done Comments Colon Cancer Screening-Colonoscopy 1965 Hepatitis C Screening 1965 Hepatitis B Screening 1983 Covid-19 Vaccine (3 - 2023-2 5 season) 2024 10/26/2020, 09/23/2020 Cervical Cancer Screening 11/01/20242023, 11/02/2023 Breast Cancer Screening-Mammogram 11/26/2024 11/27/2023, 10/10/2022 Influenza Vaccine (Season Ended) 2025 07/14/2020 Depression Screening 10/28/2025 10/28/2024, 06/17/2024, 01/18/2024 Regular Well Visit/Exam 18-64 10/28/2025, 11/02/2023 DTaP/Tdap/Td Vaccine (2 - Td or Tdap) 05/11/2030 05/11/2020 Zoster Vaccine Completed 07/14/2020, 05/11/2020 Pneumococcal vaccine <65 Aged Out No longer eligible based on patient's age to complete this topic Procedures Procedure Name Priority Date/Time Associated Diagnosis [...] Ultrasound left focal limited Ultrasound was performed [id number] EXAM DATE AND TIME: 11/27/2023 10:15 AM [...] Lerma MD Narrative 11/27/2023 11:22 AM CDT [id number] EXAM: DIAGNOSTIC MAMMOGRAM BILATERAL W LUDIN, US BREAST LEFT LIMITED EXAM: Bilateral Diagnostic Mammogram with additional spot compression left and ludin [id number] EXAM DATE AND TIME: 11/27/2023 10:15 AM [...] Procedure Note Harman Lerma MD - 11/27/2023 [id number] EXAM: DIAGNOSTIC MAMMOGRAM BILATERAL W LUDIN, US BREAST LEFT LIMITED EXAM: Bilateral Diagnostic Mammogram with additional spot compression left and ludin [id number] EXAM DATE AND TIME: 11/27/2023 10:15 AM [...] Ultrasound left focal limited Ultrasound was performed [id number] EXAM DATE AND TIME: 11/27/2023 10:15 AM [...] referral. Electronically signed by: Harman Lerma MD us Farzana Pickett MOTOR CHECKER IMG MAMMO PROCEDURES Ed ited Result - Final * High Risk HPV DNA Detection with Genotyping (Molecular component) (11/02/2023 11:07 AM CDT) HPV HR 16 Not Detected Not Detected HPV HR 18 Not Detected Not Detected [facility] HPV HR Non 16/18 Not Detected Not Detected [facility] Comment: Interpretive Data Nucleic acid amplification for [...] this test have been verified by the [facility]. Correlate with separately reported cytology results, as applicable. Interpretive data last revised 23 Endocervical 11/02/2023 11:0 7 AM CDT 11/02/2023 4:59 PM CDT Narrative [facility] - 11/06/2023 6:44 PM CDT Clinical history and diagnosis->screening Number of vials->1 Testing type->Screening Last menstrual period (date if known)->unknown us Farzana Pickett NP LAB BODY FLUIDS AND STO OLS ORDERABLES Final Result [facility] [address] Department [place] [address] from Last 3 Months or Most Recently Relevant to Health Maintenance Insurance [facility] [employer] Member Subscriber Plan / Payer ( fective 2013-Present) Name:Yosvanymary ellenfrancis Susan Enrike Relation to Subscriber:Self Name:Yosvanymary ellenSusan blanco Enrike Payer ID:[id number] (NA) Type:[facility] HMO/PPO Address: [place] [phone] Care Teams Hourly Sales Staff Relationship Specialty Start Date End Date Cuca Waggoner NP [address] [place] [address] PCP - General Family Medicine 01/29/25 Alena Kinsey OD [address] [place] [address] Referring Physician Optometry 06/30/22 Rehan Silvestre MD [address] [place] [address] Referring Physician Obstetrics and Gynecology 10/28/24
--- OUTSIDE RECORDS SUMMARY | 2025-02-19 10:20 | XMS_ITS | Continuity of Care Document ---
Author Organization [facility] Address [address] [place] [address] Phone Care Team Providers Care Electrotype Caster Name Role Phone Vargas OD, Alpesh Unavailable Unavailable Advance Directives Directive Yes / No Effective Date File Name No Information Encounters Encounter Description Practice Location Reason(s) For Visit Diagnoses Date Provider Providers Copied on Encounter [facility], [address], [place], [place], [id number], [place] tel:[phone] [facility] No Information [id number] 1 Vargas OD Alpesh. [address] , [address], [place], [address], [place]. tel:[phone] Family History Family Member Type Diagnosis Age At Onset No Information Payers Payer name Insurance type Covered republican ID Authoriza tion(s) No Information Social History Type Description Quantity Date Captured Comments Sex Female Smoking Status No Information Chief Complaint And Reason For Visit No Information Reason For Referral Reason For Referral No Information History Of Present Illness Encounter Date Complaint History Of Prese nt Illness No Information Functional Status Date Functional Assessmen t No Information Instructions Date Instruction Additional Infor mation No Information Assessments Type Assessment Date No Information Patient Care Teams Name Effective Dates (start - stop) Status Members No Information
--- OUTSIDE RECORDS SUMMARY | 2025-02-19 10:20 | XMS_ITS | Data Portability ---
Author Organization [place] - [facility], Main Office Address [address] [place] [address] Care Team Providers [facility] [employer] Driver Name Role Phone GHASSAN BERNSTEIN Primary Care Provider GHASSAN BERNSTEIN Referring Provider [phone] Assessment No assessment recorded. Plan of Treatment Reminders Order Date Submit Date Provider Last Modified By Organization Details Last Modified Time Details Appointments None recorded. Lab None recorded. Referral None recorded. Procedures None recorded. Surgeries None recorded. Imaging DEXA - osteopenia *Please call pt to schedule* 2022 [facility]23 [email or web address], 2022 Nadia Ocasio, [facility] [address], [place], [address], 4 12:49:27 MAMMO, screening, digital, bilateral - *Please call pt to schedule* 2022 023 [email or web address] [address] [facility], 2022 Nadia Ocasio, [facility] [address], [place], [address], 4 12:49:27 Medication Orders Calcium 600 + D(3) 600 mg-10 mcg (400 unit) tablet 2022 023 [facility] [address], [address], [place], [address], 3 10:18:26 Patient TargetsNo targets recorded. Patient InstructionsNo instructions recorded. Reason for Referral None Reported. Results Created Date Observation Date Name Description Value Unit Range Abnormal Flag Note LastModifiedBy Organization Detail LastModifiedTime 07/01/20 21 07/02/2021 LIPID PANEL HDL cholesterol 73 mg/dL >39 Not Available [facility] ([facility]) [address], [place], [address], 07/02/2021 03:07:33 07/01/20 21 07/02/2021 LIPID PANEL VLDL cholesterol mary 9 mg/dL 5-40 Not Available [facility] ([facility]) [address] [place], [address], 07/02/2021 03:07:33 07/01/20 21 07/02/2021 LIPID PANEL LDL chol calc ([facility]) 132 mg/dL 0-99 above high normal Not Available [facility] ([facility]) [address] [place], [address], 07/02/2021 03:07:33 07/01/20 21 07/02/2021 LIPID PANEL comment: line and frame poler Not Available [facility] ([facility]) [address] [place], [address], 07/02/2021 03:07:33 07/01/20 21 07/02/2021 LIPID PANEL cholesterol, total 214 mg/dL 100-19 9 above high normal Not Available [facility] ([facility]) [address] [place], [address], 07/02/2021 03:07:33 07/01/20 21 07/02/2021 LIPID PANEL triglyceride s 53 mg/dL 0-149 Not Available [facility] ([facility]) [address] [place], [address], 07/02/2021 03:07:33 07/01/20 21 07/02/2021 COMP. METAB OLIC PANEL (14) glucose 94 mg/dL 65-99 Not Available [facility] ([facility]) [address] [place], [address], 07/02/2021 03:07:32 07/01/20 21 07/02/2021 COMP. METAB OLIC PANEL (14) BUN 17 mg/dL 6-24 Not Available [facility] ([facility]) [address], [place], [address], 07/02/2021 03:07:32 07/01/20 21 07/02/2021 COMP. METAB OLIC PANEL (14) creatinine 0.81 mg/dL 0.57-1 .00 Not Available [facility] ([facility]) [address], [place], [address], 07/02/2021 03:07:32 07/01/20 21 07/02/2021 COMP. METAB OLIC PANEL (14) eGFR if nonafricn AM 82 mL/mi n/1.7 3 >59 Not Available [facility] ([facility]) [address], [place], [address], 07/02/2021 03:07:32 07/01/20 21 07/02/2021 COMP. METAB OLIC PANEL (14) eGFR if africn AM 95 mL/mi n/1.7 3 >59 In accor dance with recom menda tigil from the NKF-A SN Task force , Rabia is in the proce ss of updat ing its eGFR calcu latio n to the 2020 CKD-E PI creat inine equat ion that estim ates kidne y funct ion witho ut a race varia ble. Not Available [facility] ([facility]) [address], [place], [address], 07/02/2021 03:07:32 07/01/20 21 07/02/2021 COMP. METAB OLIC PANEL (14) BUN/creatini ne ratio 05-12 Not Available [facility] ([facility]) [address], [place], [address], 07/02/2021 03:07:32 07/01/20 21 07/02/2021 COMP. METAB OLIC PANEL (14) sodium 143 mmol/ L 134-14 4 Not Available [facility] ([facility]) [address] [place], [address], 07/02/2021 03:07:32 07/01/20 21 07/02/2021 COMP. METAB OLIC PANEL (14) potassium 4.3 mmol/ L 3.5-5. 2 Not Available [facility] ([facility]) [address] [place], [address], 07/02/2021 03:07:32 07/01/20 21 07/02/2021 COMP. METAB OLIC PANEL (14) chloride 103 mmol/ L 96-106 Not Available [facility] ([facility]) [address] [place], [address], 07/02/2021 03:07:32 07/01/20 21 07/02/2021 COMP. METAB OLIC PANEL (14) carbon dioxide, total 26 mmol/ L 20-29 Not Available [facility] ([facility]) [address] [place], [address], 07/02/2021 03:07:32 07/01/20 21 07/02/2021 COMP. METAB OLIC PANEL (14) calcium 9.7 mg/dL 8.7-10 .2 Not Available [facility] ([facility]) [address] [place], [address], 07/02/2021 03:07:32 07/01/20 21 07/02/2021 COMP. METAB OLIC PANEL (14) protein, total 7.4 g/dL 6.0-8. 5 Not Available [facility] ([facility]) [address] [place], [address], 07/02/2021 03:07:32 07/01/20 21 07/02/2021 COMP. METAB OLIC PANEL (14) albumin 5.0 g/dL 3.8-4. 9 above high normal Not Available [facility] ([facility]) [address], [place], [address], 07/02/2021 03:07:32 07/01/20 21 07/02/2021 COMP. METAB OLIC PANEL (14) globulin, total 2.4 g/dL 1.5-4. 5 Not Available [facility] ([facility]) [address] [place], [address], 07/02/2021 03:07:32 07/01/20 21 07/02/2021 COMP. METAB OLIC PANEL (14) A/G ratio 2.1 1.2-2. 2 Not Available [facility] ([facility]) [address] [place], [address], 07/02/2021 03:07:32 07/01/20 21 07/02/2021 COMP. METAB OLIC PANEL (14) bilirubin, total 0.3 mg/dL 0.0-1. 2 Not Available [facility] ([facility]) [address], [place], [address], 07/02/2021 03:07:32 07/01/20 21 07/02/2021 COMP. METAB OLIC PANEL (14) alkaline phosphatase 68 IU/L 44-121 Ple ase note refer ence inter jamilah vickers e Not Available [facility] ([facility]) [address] [place], [address], 07/02/2021 03:07:32 07/01/20 21 07/02/2021 COMP. METAB OLIC PANEL (14) AST (SGOT) 18 IU/L 0-40 Not Available [facility] ([facility]) [address] [place], [address], 07/02/2021 03:07:32 07/01/20 21 07/02/2021 COMP. METAB OLIC PANEL (14) ALT (SGPT) 15 IU/L 0-32 Not Available [facility] ([facility]) [address], [place], [address], 07/02/2021 03:07:32 07/28/20 22 07/29/2022 HEMOG LOBIN A1C hemoglobin A1C 5.6 % 4.8-5. 6 Predi abete s: 5.7 - 6.4 Diabe javier: >6.4 Glyce paige contr ol for adult s with diabe javier: <7.0 Not Available [facility] ([facility]) [address], [place], [address], 07/29/2022 07:11:17 07/28/20 22 07/29/2022 LIPID PANEL cholesterol, total 236 mg/dL 100-19 9 above high normal Not Available [facility] ([facility]) [address], [place], [address], 07/29/2022 07:11:17 07/28/20 22 07/29/2022 LIPID PANEL triglyceride s 61 mg/dL 0-149 Not Available [facility] ([facility]) [address] [place], [address], 07/29/2022 07:11:17 07/28/20 22 07/29/2022 LIPID PANEL HDL cholesterol 83 mg/dL >39 Not Available [facility] ([facility]) [address] [place], [address], 07/29/2022 07:11:17 07/28/20 22 07/29/2022 LIPID PANEL VLDL cholesterol mary 10 mg/dL 5-40 Not Available [facility] ([facility]) [address] [place], [address], 07/29/2022 07:11:17 07/28/20 22 07/29/2022 LIPID PANEL LDL chol calc ([facility]) 143 mg/dL 0-99 above high normal Not Available [facility] ([facility]) [address] [place], [address], 07/29/2022 07:11:17 07/28/20 22 07/29/2022 LIPID PANEL comment: line and frame poler Not Available [facility] ([facility]) [address] [place], [address], 07/29/2022 07:11:17 07/28/20 22 07/29/2022 COMP. METAB OLIC PANEL (14) glucose 100 mg/dL 70-99 above high normal Not Available [facility] ([facility]) [address] [place], [address], 07/29/2022 07:11:16 07/28/20 22 07/29/2022 COMP. METAB OLIC PANEL (14) BUN 20 mg/dL 6-24 Not Available [facility] ([facility]) [address] [place], [address], 07/29/2022 07:11:16 07/28/20 22 07/29/2022 COMP. METAB OLIC PANEL (14) creatinine 0.75 mg/dL 0.57-1 .00 Not Available [facility] ([facility]) [address] [place], [address], 07/29/2022 07:11:16 07/28/20 22 07/29/2022 COMP. METAB OLIC PANEL (14) eGFR 93 mL/mi n/1.7 3 >59 Not Available [facility] ([facility]) [address] [place], [address], 07/29/2022 07:11:16 07/28/20 22 07/29/2022 COMP. METAB OLIC PANEL (14) BUN/creatini ne ratio 27 9-23 above high normal Not Available [facility] ([facility]) [address] [place], [address], 07/29/2022 07:11:16 07/28/20 22 07/29/2022 COMP. METAB OLIC PANEL (14) sodium 142 mmol/ L 134-14 4 Not Available [facility] ([facility]) [address] [place], [address], 07/29/2022 07:11:16 07/28/20 22 07/29/2022 COMP. METAB OLIC PANEL (14) potassium 4.5 mmol/ L 3.5-5. 2 Not Available [facility] ([facility]) [address] [place], [address], 07/29/2022 07:11:16 07/28/20 22 07/29/2022 COMP. METAB OLIC PANEL (14) chloride 100 mmol/ L 96-106 Not Available [facility] ([facility]) [address] [place], [address], 07/29/2022 07:11:16 07/28/20 22 07/29/2022 COMP. METAB OLIC PANEL (14) carbon dioxide, total 27 mmol/ L 20-29 Not Available [facility] ([facility]) [address] [place], [address], 07/29/2022 07:11:16 07/28/20 22 07/29/2022 COMP. METAB OLIC PANEL (14) calcium 10.2 mg/dL 8.7-10 .2 Not Available [facility] ([facility]) [address] [place], [address], 07/29/2022 07:11:16 07/28/20 22 07/29/2022 COMP. METAB OLIC PANEL (14) protein, total 7.5 g/dL 6.0-8. 5 Not Available [facility] ([facility]) [address] [place], [address], 07/29/2022 07:11:16 07/28/20 22 07/29/2022 COMP. METAB OLIC PANEL (14) albumin 4.8 g/dL 3.8-4. 9 Not Available [facility] ([facility]) [address] [place], [address], 07/29/2022 07:11:16 07/28/20 22 07/29/2022 COMP. METAB OLIC PANEL (14) globulin, total 2.7 g/dL 1.5-4. 5 Not Available [facility] ([facility]) [address], [place], [address], 07/29/2022 07:11:16 07/28/20 22 07/29/2022 COMP. METAB OLIC PANEL (14) A/G ratio 1.8 1.2-2. 2 Not Available [facility] ([facility]) [address], [place], [address], 07/29/2022 07:11:16 07/28/20 22 07/29/2022 COMP. METAB OLIC PANEL (14) bilirubin, total 0.4 mg/dL 0.0-1. 2 Not Available [facility] ([facility]) [address], [place], [address], 07/29/2022 07:11:16 07/28/20 22 07/29/2022 COMP. METAB OLIC PANEL (14) alkaline phosphatase 72 IU/L 44-121 Not Available [facility] ([facility]) [address], [place], [address], 07/29/2022 07:11:16 07/28/20 22 07/29/2022 COMP. METAB OLIC PANEL (14) AST (SGOT) 18 IU/L 0-40 Not Available [facility] ([facility]) [address], [place], [address], 07/29/2022 07:11:16 07/28/20 22 07/29/2022 COMP. METAB OLIC PANEL (14) ALT (SGPT) 16 IU/L 0-32 Not Available [facility] ([facility]) [address], [place], [address], 07/29/2022 07:11:16 10/05/19 24 10/06/2023 TSH+F REE T4 TSH 2.490 uIU/m L 0.450- 4.500 Not Available [facility] ([facility]) [address] [place], [address], 10/06/2023 08:18:56 10/05/19 24 10/06/2023 TSH+F REE T4 T4,free(dire ct) 1.39 NG/dL 0.82-1 .77 Not Available [facility] ([facility]) [address] [place], [address], 10/06/2023 08:18:56 10/05/19 24 10/06/2023 CBC WITH DIFFE RENTI AL/PL ATELE T WBC 6.1 x10e3 /uL 3.4-10 .8 Not Available [facility] ([facility]) [address] [place], [address], 10/06/2023 08:18:57 10/05/19 24 10/06/2023 CBC WITH DIFFE RENTI AL/PL ATELE T RBC 4.14 x10e6 /uL 3.77-5 .28 Not Available [facility] ([facility]) [address] [place], [address], 10/06/2023 08:18:57 10/05/19 24 10/06/2023 CBC WITH DIFFE RENTI AL/PL ATELE T hemoglobin 12.9 g/dL 11.1-1 5.9 Not Available [facility] ([facility]) [address] [place], [address], 10/06/2023 08:18:57 10/05/19 24 10/06/2023 CBC WITH DIFFE RENTI AL/PL ATELE T hematocrit 37.5 % 34.0-4 6.6 Not Available [facility] ([facility]) [address] [place], [address], 10/06/2023 08:18:57 02/16/20 24 10/06/2023 CBC WITH DIFFE RENTI AL/PL ATELE T MCV 91 fL 79-97 Not Available [facility] ([facility]) [address], [place], [address], 10/06/2023 08:18:57 10/05/19 24 10/06/2023 CBC WITH DIFFE RENTI AL/PL ATELE T MCH 31.2 pg 26.6-3 3.0 Not Available [facility] ([facility]) [address], [place], [address], 10/06/2023 08:18:57 10/05/19 24 10/06/2023 CBC WITH DIFFE RENTI AL/PL ATELE T MCHC 34.4 g/dL 31.5-3 5.7 Not Available [facility] ([facility]) [address], [place], [address], 10/06/2023 08:18:57 10/05/19 24 10/06/2023 CBC WITH DIFFE RENTI AL/PL ATELE T RDW 12.6 % 11.7-1 5.4 Not Available [facility] ([facility]) [address], [place], [address], 10/06/2023 08:18:57 10/05/19 24 10/06/2023 CBC WITH DIFFE RENTI AL/PL ATELE T platelets 256 x10e3 /uL 150-45 0 Not Available [facility] ([facility]) [address], [place], [address], 10/06/2023 08:18:57 10/05/19 24 10/06/2023 CBC WITH DIFFE RENTI AL/PL ATELE T neutrophils 53 % not estab. Not Available [facility] ([facility]) [address] [place], [address], 10/06/2023 08:18:57 10/05/19 24 10/06/2023 CBC WITH DIFFE RENTI AL/PL ATELE T lymphs 30 % not estab. Not Available [facility] ([facility]) [address] [place], [address], 10/06/2023 08:18:57 10/05/19 24 10/06/2023 CBC WITH DIFFE RENTI AL/PL ATELE T monocytes 11 % not estab. Not Available [facility] ([facility]) [address], [place], [address], 10/06/2023 08:18:57 10/05/19 24 10/06/2023 CBC WITH DIFFE RENTI AL/PL ATELE T eos 5 % not estab. Not Available [facility] ([facility]) [address], [place], [address], 10/06/2023 08:18:57 10/05/19 24 10/06/2023 CBC WITH DIFFE RENTI AL/PL ATELE T basos 1 % not estab. Not Available [facility] ([facility]) [address] [place], [address], 10/06/2023 08:18:57 10/05/19 24 10/06/2023 CBC WITH DIFFE RENTI AL/PL ATELE T immature cells ELECTROLYSIS INVESTIGATOR Not Available [facility] ([facility]) [address] [place], [address], 10/06/2023 08:18:57 10/05/19 24 10/06/2023 CBC WITH DIFFE RENTI AL/PL ATELE T neutrophils (absolute) 3.2 x10e3 /uL 1.4-7. 0 Not Available [facility] ([facility]) [address] [place], [address], 10/06/2023 08:18:57 10/05/19 24 10/06/2023 CBC WITH DIFFE RENTI AL/PL ATELE T lymphs (absolute) 1.8 x10e3 /uL 0.7-3. 1 Not Available [facility] ([facility]) [address], [place], [address], 10/06/2023 08:18:57 10/05/19 24 10/06/2023 CBC WITH DIFFE RENTI AL/PL ATELE T monocytes(ab solute) 0.7 x10e3 /uL 0.1-0. 9 Not Available [facility] ([facility]) [address], [place], [address], 10/06/2023 08:18:57 10/05/19 24 10/06/2023 CBC WITH DIFFE RENTI AL/PL ATELE T eos (absolute) 0.3 x10e3 /uL 0.0-0. 4 Not Available [facility] ([facility]) [address], [place], [address], 10/06/2023 08:18:57 10/05/19 24 10/06/2023 CBC WITH DIFFE RENTI AL/PL ATELE T baso (absolute) 0.1 x10e3 /uL 0.0-0. 2 Not Available [facility] ([facility]) [address], [place], [address], 10/06/2023 08:18:57 10/05/19 24 10/06/2023 CBC WITH DIFFE RENTI AL/PL ATELE T immature granulocytes 0 % not estab. Not Available [facility] ([facility]) [address] [place], [address], 10/06/2023 08:18:57 10/05/19 24 10/06/2023 CBC WITH DIFFE RENTI AL/PL ATELE T immature grans (abs) 0.0 x10e3 /uL 0.0-0. 1 Not Available [facility] ([facility]) [address], [place], [address], 10/06/2023 08:18:57 10/05/19 24 10/06/2023 CBC WITH DIFFE RENTI AL/PL ATELE T NRBC ELECTROLYSIS INVESTIGATOR Not Available [facility] ([facility]) [address] [place], [address], 10/06/2023 08:18:57 10/05/19 24 10/06/2023 CBC WITH DIFFE RENTI AL/PL ATELE T hematology comments: ELECTROLYSIS INVESTIGATOR Not Available [facility] ([facility]) [address] [place], [address], 10/06/2023 08:18:57 10/05/19 24 10/06/2023 COMP. METAB OLIC PANEL (14) glucose 100 mg/dL 70-99 above high normal Not Available [facility] ([facility]) [address] [place], [address], 10/06/2023 08:18:58 10/05/19 24 10/06/2023 COMP. METAB OLIC PANEL (14) BUN 19 mg/dL 6-24 Not Available [facility] ([facility]) [address] [place], [address], 10/06/2023 08:18:58 10/05/19 24 10/06/2023 COMP. METAB OLIC PANEL (14) creatinine 0.69 mg/dL 0.57-1 .00 Not Available [facility] ([facility]) [address] [place], [address], 10/06/2023 08:18:58 10/05/19 24 10/06/2023 COMP. METAB OLIC PANEL (14) eGFR 101 mL/mi n/1.7 3 >59 Not Available [facility] ([facility]) [address] [place], [address], 10/06/2023 08:18:58 10/05/19 24 10/06/2023 COMP. METAB OLIC PANEL (14) BUN/creatini ne ratio 28 9-23 above high normal Not Available [facility] ([facility]) [address] [place], [address], 10/06/2023 08:18:58 10/05/19 24 10/06/2023 COMP. METAB OLIC PANEL (14) sodium 143 mmol/ L 134-14 4 Not Available [facility] ([facility]) [address] [place], [address], 10/06/2023 08:18:58 10/05/19 24 10/06/2023 COMP. METAB OLIC PANEL (14) potassium 4.2 mmol/ L 3.5-5. 2 Not Available [facility] ([facility]) [address] [place], [address], 10/06/2023 08:18:58 10/05/19 24 10/06/2023 COMP. METAB OLIC PANEL (14) chloride 102 mmol/ L 96-106 Not Available [facility] ([facility]) [address] [place], [address], 10/06/2023 08:18:58 10/05/19 24 10/06/2023 COMP. METAB OLIC PANEL (14) carbon dioxide, total 24 mmol/ L 20-29 Not Available [facility] ([facility]) [address] [place], [address], 10/06/2023 08:18:58 10/05/19 24 10/06/2023 COMP. METAB OLIC PANEL (14) calcium 9.7 mg/dL 8.7-10 .2 Not Available [facility] ([facility]) [address] [place], [address], 10/06/2023 08:18:58 10/05/19 24 10/06/2023 COMP. METAB OLIC PANEL (14) protein, total 7.1 g/dL 6.0-8. 5 Not Available [facility] ([facility]) [address] [place], [address], 10/06/2023 08:18:58 10/05/19 24 10/06/2023 COMP. METAB OLIC PANEL (14) albumin 4.6 g/dL 3.8-4. 9 Not Available [facility] ([facility]) [address] [place], [address], 10/06/2023 08:18:58 10/05/19 24 10/06/2023 COMP. METAB OLIC PANEL (14) globulin, total 2.5 g/dL 1.5-4. 5 Not Available [facility] ([facility]) [address], [place], [address], 10/06/2023 08:18:58 10/05/19 24 10/06/2023 COMP. METAB OLIC PANEL (14) A/G ratio 1.8 1.2-2. 2 Not Available [facility] ([facility]) [address] [place], [address], 10/06/2023 08:18:58 10/05/19 24 10/06/2023 COMP. METAB OLIC PANEL (14) bilirubin, total 0.3 mg/dL 0.0-1. 2 Not Available [facility] ([facility]) [address] [place], [address], 10/06/2023 08:18:58 10/05/19 24 10/06/2023 COMP. METAB OLIC PANEL (14) alkaline phosphatase 65 IU/L 44-121 Not Available [facility] ([facility]) [address] [place], [address], 10/06/2023 08:18:58 10/05/19 24 10/06/2023 COMP. METAB OLIC PANEL (14) AST (SGOT) 22 IU/L 0-40 Not Available [facility] ([facility]) [address] [place], [address], 10/06/2023 08:18:58 10/05/19 24 10/06/2023 COMP. METAB OLIC PANEL (14) ALT (SGPT) 21 IU/L 0-32 Not Available [facility] ([facility]) [address] [place], [address], 10/06/2023 08:18:58 10/05/19 24 10/06/2023 LIPID PANEL cholesterol, total 160 mg/dL 100-19 9 Not Available [facility] ([facility]) [address] [place], [address], 10/06/2023 08:18:59 10/05/19 24 10/06/2023 LIPID PANEL triglyceride s 47 mg/dL 0-149 Not Available [facility] ([facility]) [address] [place], [address], 10/06/2023 08:18:59 10/05/19 24 10/06/2023 LIPID PANEL HDL cholesterol 78 mg/dL >39 Not Available [facility] ([facility]) [address] [place], [address], 10/06/2023 08:18:59 10/05/19 24 10/06/2023 LIPID PANEL VLDL cholesterol mary 10 mg/dL 5-40 Not Available [facility] ([facility]) [address] [place], [address], 10/06/2023 08:18:59 10/05/19 24 10/06/2023 LIPID PANEL LDL chol [facility]) 72 mg/dL 0-99 Not Available [facility] ([facility]) [address] [place], [address], 10/06/2023 08:18:59 10/05/19 24 10/06/2023 LIPID PANEL comment: ELECTROLYSIS INVESTIGATOR Not Available [facility] ([facility]) [address] [place], [address], 10/06/2023 08:18:59 10/05/19 24 10/06/2023 VITAM IN B12 AND FOLAT E vitamin B12 1096 pg/mL 232-12 45 Not Available [facility] ([facility]) [address], [place], [address], 10/06/2023 08:19:00 10/05/19 24 10/06/2023 VITAM IN B12 AND FOLAT E folate (folic acid), serum >20.0 NG/mL >3.0 A serum folat e tasha ntrat ion of less than 3.1 ng/mL is consi dered to repre sent clini mary defic iency . Not Available [facility] ([facility]) [address], [place], [address], 10/06/2023 08:19:00 10/05/19 24 10/06/2023 HEMOG LOBIN A1C hemoglobin A1C 5.7 % 4.8-5. 6 above high normal Predi abete s: 5.7 - 6.4 Diabe javier: >6.4 Glyce paige contr ol for adult s with diabe javier: <7.0 Not Available [facility] ([facility]) [address], [place], [address], 10/06/2023 08:19:01 10/05/19 24 10/06/2023 VITAM IN D, 25-HY DROXY vitamin D, 25-hydroxy 59.0 NG/mL 30.0-1 00.0 Vitam in D defic iency has been defin ed by the Insti tute of Medic ine and an Endoc rine Socie ty pract ice guide line as a level of serum 25-OH vitam in D less than 20 ng/mL (1,2) . The Endoc rine Socie ty went on to furth er defin e vitam in D insuf ficie ncy as a level betwe en 21 and 29 ng/mL (2). 1. IOM (Inst itute of Medic ine). 2010. Dieta ry refer ence intak es for calci um and D. Erin molina [place]: [facility], [facility] Press . 2. Baljinder duarte MF, Kristen inman [place], Fawn off-F errar i SMITH, et al. Evalu ation , treat ment, and preve ntion of vitam in D defic iency : an Endoc rine Socie ty clini mary pract ice guide line. JCEM. 2010; 96(7) :1911 -30. Not Available [facility] ([facility]) [address], [place], [address], 10/06/2023 08:19:02 10/05/19 24 10/06/2023 CREAT INE KINAS E,TOT AL creatine kinase,total 71 U/L 32-182 Not Available [facility] ([facility]) [address], [place], [address], 10/06/2023 08:19:03 10/05/19 24 10/06/2023 MAGNE SIUM magnesium 2.1 mg/dL 1.6-2. 3 Not Available [facility] ([facility]) [address], [place], [address], 10/06/2023 08:19:04 10/04/19 22 10/04/2021 imagi ng/di agnos tic resul t No observ ation record ed. [id number] [facility] [address], [place], [address], 10/18/2022 09:19:37 10/10/19 23 10/10/2022 MAMMO , scree hannah, digit al, bilat eral No observ ation record ed. [id number] [facility] [address], [place], [address], 10/18/2022 09:19:37 10/10/1910/10/2022 MAMMO , scree hannah, digit al, bilat eral No observ ation record ed. [id number] [facility] [address], [place], [address], 10/18/2022 09:19:37 11/27/19 24 11/27/2023 MAMMO , scree hannah, digit al, bilat eral No observ ation record ed. [email or web address] [facility] [address], [place], [address], 11/29/2023 10:56:55 12/04/19 24 12/04/2023 MAMMO , diagn ostic , bilat eral No observ ation record ed. [email or web address] [facility] [address], [place], [address], 12/04/2023 10:28:10 01/18/20 24 01/18/2024 DEXA No observ ation record ed. [email or web address] [facility] [address], [place], [address], 04/30/2024 09:44:24 Result Notes None recorded. Problems Name Problem SNOMED Code Status Onset Date Resolution Date Notes Provider Name and Address Organization Details Recorded Time Contact dermatitis caused by urushiol from poison [place] 08426144 Active Not Available [facility] 3 09:16:40 Non-arteritic ischemic optic neuropathy 248768750 Active 2021 Not Available [facility] 3 09:16:40 Gastroesophag eal reflux disease 307855325 Active Not Available [facility] 3 09:16:40 Memory impairment 342934323 Active Not Available [facility] 3 09:16:40 Hyperlipidemi a 68062038 Active Not Available [facility] 3 09:16:40 Bilateral hearing loss 75364087 Active Not Available [facility] 3 09:16:40 Essential hypertension 06916211 Active 2022 Ghassan Granados MD [address], [place], [address] , [facility] 3 11:27:26 Impaired fasting glycemia 900988560 Active 2022 ELSIE Becker [address], [place], [address] , [facility] [employer] [facility] 3 10:13:03 Screening for osteoporosis Active 2022 ELSIE Becker [address], [place], [address] , [facility] [employer] [facility] 3 10:14:50 Screening for malignant neoplasm of breast Active 2022 ELSIE Becker [address], [place], [address] , [facility] [employer] [facility] 3 10:15:07 Osteopenia 281133604 Active 2022 ELSIE Becker [address], [place], [address] , [facility] [employer] [facility] 3 10:17:27 At increased risk of nutritional deficit 267308506 Active 2023 ELSIE Becker [address], [address], [place], [address] , [facility] [employer] [facility] 4 10:57:02 Notes:Some problems listed i n Document: #[id number] could not be added to this patient's chart. Please review this document and add these problems to the patient's chart manually as needed. Problem Notes None recorded. Procedures Surgical History Date Name Laterality Status Provider Name and Address Organization Details Recorded Time Colposcopy completed Not Available [facility] 10/18/2022 09:14:20 Imaging Results None recorded. Procedure Notes None recorded. Medical Equipment None Reported. Allergies No known drug allergies Medications Name Sig Start Date Stop Date Status Note LastModified by Organization Details LastModified Time losartan 50 mg tablet Take 1 tablet every day by oral route. active Not Available Not Available No t Available atorvasta tin 10 mg tablet TAKE 1 TABLET BY MOUTH ONCE DAILY active Not Available Not Available No t Available azithromy ja 250 mg tablet 05/11 completed Not Available Not Available Not Available valacyclo vir 1 gram tablet TAKE 2 TABLETS BY MOUTH AT FIRST SIGN OF OUTBREAK AND TAKE 2 TABLETS BY MOUTH 12 HOURS LATER active Not Available Not Available No t Available peg-elect rolyte solution 420 gram oral solution MIX AND DRINK UTD 01/22 completed Not Available Not Available Not Available alprazola m 0.25 mg tablet TAKE 1 TABLET BY MOUTH THREE TIMES DAILY NEEDED active Not Available Not Available No t Available prednisol one acetate 1 % eye drops,vicente pension INSTILL 1 DROP IN BOTH EYES THREE TIMES DAILY X 3 DAYS THEN TWICE DAILY X 7 DAYS 06/24 completed Not Available Not Available Not Available estradiol 1 mg tablet TK 1 T PO D 01/22 completed Not Available Not Available Not Available nystatin 100,000 unit/gram topical cream APPLY AA 2 TO 3 TIMES A DAY FOR 7 TO 10 DAYS 01/22 completed Not Available Not Available Not Available nystatin 100,000 unit/gram topical powder APPLY TO AFFECTED AREA TWICE A DAY active Not Available Not Available No t Available losartan 50 mg-hydroc hlorothia zide 12.5 mg tablet Take 1 tablet by mouth once daily 2023 active Not Available Not Available Not Avai lable oxybutyni n chloride 5 mg tablet Take 1 tablet twice a day by oral route. active Not Available Not Available No t Available esomepraz ole magnesium 20 mg capsule,d elayed release TAKE 1 CAPSULE BY MOUTH ONCE DAILY active Not Available Not Available No t Available Zyrtec 2016 active occasion ally Not Available Not Available Not Available calcium 600 mg (as carbonate )-vitamin D3 10 mcg (400 unit) tablet TAKE 1 TABLET BY MOUTH TWICE DAILY WITH MEALS active Not Available Not Available No t Available estradiol -norethin drone acet 0.5 mg-0.1 mg tablet TAKE 1/2 TABLET DAILY BY MOUTH active Not Available Not Available No t Available Toviaz 4 mg tablet,ex tended release Take 1 tablet every day by oral route. 05/11 completed Not Available Not Available Not Available Vitals Date Recorded Body mass index (BMI) Body height Oxygen saturation Oxygen saturation in Arterial blood by Pulse oximetry Heart rate Body temperature Body weight Systolic And Diastolic Provider Name and Address Organization Details Last Updated DateTime 1 34.4 kg/m2 152.4 cm 99 % 99 % 87 /min 97.3 [degF] 64904.2 6 g 128/80 mm[Hg] Not Available [facility] 3 09:14:28 Date Recorded Body mass index (BMI) Body height Oxygen saturation Oxygen saturation in Arterial blood by Pulse oximetry Heart rate Body temperature Body weight Systolic And Diastolic Provider Name and Address Organization Details Last Updated DateTime 2 33.4 kg/m2 152.4 cm 97 % 97 % 82 /min 98.1 [degF] 97522.3 g 114/80 mm[Hg] Not Available [facility] 3 09:14:28 Date Recorded Body mass index (BMI) Body height Oxygen saturation Oxygen saturation in Arterial blood by Pulse oximetry Heart rate Body temperature Body weight Systolic And Diastolic Provider Name and Address Organization Details Last Updated DateTime 1 34.4 kg/m2 152.4 cm 97 % 97 % 81 /min 97.6 [degF] 73471.2 6 g 116/86 mm[Hg] Not Available [facility] 3 09:14:28 Date Recorded Body mass index (BMI) Body height Oxygen saturation Oxygen saturation in Arterial blood by Pulse oximetry Heart rate Body temperature Body weight Systolic And Diastolic Provider Name and Address Organization Details Last Updated DateTime 2 33.6 kg/m2 152.4 cm 97 % 97 % 80 /min 98.2 [degF] 08920.8 9 g 144/100 mm[Hg] Not Available [facility] 3 09:14:28 Date Recorded Body weight Body mass index (BMI) Body height Body temperature Heart rate Oxygen saturation Oxygen saturation in Arterial blood by Pulse oximetry Systolic And Diastolic Provider Name and Address Organization Details Last Updated DateTime 3 75714.8 5 g 34.6 kg/m2 152.4 cm 97.2 [degF] 69 /min 98 % 98 % 122/80 mm[Hg] Kim Newell RN [facility] 3 10:06:28 Social History Question Answer Notes LastModified by Organizat ion Details LastModified Time Tobacco Smoking Status Never Smoker Mikayla james [facility] 08/10/2023 09:55:16 In The 14 Days Before Symptom Onset, Have You Had Close Contact With A Laboratory-confirm ed COVID-19 While That Case Was Ill? No Information n ot available 08/10/2023 In The 14 Days Before Symptom Onset, Have You Had Close Contact With A Person Who Is Under Investigation For COVID-19 While That Person Was Ill? No Information not available 08/10/2023 What Is The Highest Grade Or Level Of School You Have Completed Or The Highest Degree You Have Received? [id number] [email or web address] Information not available 08/10/2023 What Is Your Relationship Status? [email or web address] Information not available 08/10/2023 Sex: Unknown Functional Status Question Answer Note LastModified by Organizat ion Details LastModified Time What is your level of alcohol consumption? Occasional [id number] Information not available 10/18/2022 Are you currently employed? 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 Family History Relationship Description Onset Age of this Age Resolved Age Notes LastModified by Organization Details LastModified Time Sister Hypertensive disorder [id number] Not available 10/18/2022 09:14:21 Sister Diabetes mellitus [id number] Not available 10/18/2022 09:14:21 Father Hypertensive disorder [id number] Not available 10/18/2022 09:14:21 Mother Low blood pressure [email or web address] Not available 08/10 09:55:16 Paternal Aunt Malignant neoplasm of ovary Not available 08/10 09:55:16 Paternal Aunt Malignant tumor of breast Not available 08/10 09:55:16 Paternal Grandmother Myocardial infarction [id number] Not available 10/18/2022 09:14:21 Maternal Grandfather Family history of malignant neoplasm lung [email or web address] Not available 08/10 09:55:16 Paternal Grandfather Family history of malignant neoplasm colon [email or web address] Not available 08/10 09:55:16 Medical History No medical history recorded. Gynecological HistoryNo gynecological history recorded. Obstetrics History GPAL:G 0 P 0 0 0 0 Immunizations Vaccine Type Date Status Note Provider Nam e and Address Organization Details Recorded Time zoster recombinant 0 completed Not Available [facility] 10/18/2022 09:19:25 zoster recombinant 0 completed Not Available [facility] 10/18/2022 09:19:25 Tdap 0 completed Not Available [facility] 10/18/2022 09:19:25 Influenza, split virus, quadrivalent, PF 0 completed Not Available [facility] 10/18/2022 09:19:25 Past Encounters Encounter ID Performer Location Encounter Start Date Encounter Closed Date Diagnosis/Indication Diagnosis SNOMED-CT Code Diagnosis ICD10 Code Diagnosis Note [id number] Ghassan Granados MD [facility] [address] [place] [address] y , [place] [address] 02/02/2021 00:00:00 02/02/2021 20:29:44 [id number] Ghassan Granados MD [facility] [address] [place] [address] [place] [address] 03/02/2021 00:00:00 03/02/2021 21:39:12 [id number] Ghassan Granados MD [facility] [address] [place] [address] [place] [address] 03/31/2021 00:00:00 03/31/2021 20:55:56 [id number] Ghassan Granados MD [facility] [address] [place] [address] [place] [address] 06/24/2021 00:00:00 06/24/2021 15:57:32 [id number] Ghassan Granados MD [facility] [address] [place] [address] [place] [address] 04/27/2022 00:00:00 04/27/2022 20:47:49 [id number] Ghassan Granados MD [facility] [address] [place] [address] [place] [address] 07/11/2022 00:00:00 07/11/2022 20:22:58 [id number] Ghassan Granados MD [facility] Debbie olivia [address] [place], [place] [address] [place] [address] 08/10/2023 09:52:58 08/10/2023 10:21:08 Impaired fasting glycemia 147382382 R73.01 Screening for malignant neoplasm of breast 850906932 Z12.39 Screening for osteoporosis 372354421 Z13.820 Osteopenia 498267573 M85 .80 Essential hypertension 92553715 I10 Gastroesop hageal reflux disease 849891365 K21.9 Hyperlipidemia 67776135 E78.5 Adult heal th examination 706771289 Z00.00 Health Concerns Section Related Observation LastModified by Organization Detai ls LastModified Time None Recorded Concern Status LastModified by Organization Details LastModified Time None Recorded Advance Directives Directive None Recorded Payers Insurance Date Sequence Insurance Name Policy Number Policy Amynard Covered Member ID Maynard Member ID Guarantor Name 08/28/2023 1 [facility] [id number] Susan Ghosh [id number] Susan Ghosh Notes Date Note Type Note Provider Name and Address Organization Details Recorded Time 08/10/2023 text/html annual wellness, needs a mammogram and a dexa scan ELSIE Becker [address], [place], [address], [facility] 10/17/2023 16:11:55 OBGyn Episode No OBEpisode recorded.
== END 2025-02-19 10:11 | disposition home or self-care (01) ==
LOC: ANHIMG 10:11
PROVIDERS: PCP Nurse Practitioner Family; Visit Provider Nurse Practitioner Obstetrics & Gynecology
DX: Z12.31 Encounter for screening mammogram for malignant neoplasm of breast (principal)
CPT/HCPCS: 77063; 77067